=== PATIENT | male | born 1960 | race Hispanic/Latino ===

== ENCOUNTER 2018-04-04 10:41 | Observation (INO) | payer OTHER ==
--- OUTSIDE RECORDS SUMMARY | 2018-04-04 10:43 | XMS REPORT ---
:1960 Author Organization [employer] Care Team Providers Name Role Phone Augustin, Na Provider Role Unavailable Allergies, Adverse Reactions, Alerts Substance Reaction Event Type PCN Info Not Available Drug Allergy Amoxicillin Info Not Available Drug Allergy Problems Problem Type Condition Code Onset Dates Condition Status Problem Diabetic nephropathy E11.21 Active Problem Benign essential HTN I10 Active Problem Obese E66.9 Active Problem Other obesity due to excess E66.09 Active calories Problem Pain in right ankle and joints of M25.571 Active right foot Problem Other chronic pain G89.29 Active Problem Controlled type 2 diabetes mellitus E11.9 Active without complication, without long-term current use of insulin Problem Diabetes E11.9 Active Problem Body mass index (BMI) of 31.0-31.9 Z68.31 Active in adult Problem 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 Assessment Pain in right ankle and joints of M25.571 Active right foot Assessment Other chronic pain G89.29 Active Assessment Body mass index (BMI) of 31.0-31.9 Z68.31 Active in adult Assessment Other obesity due to excess E66.09 Active calories Assessment Benign essential HTN I10 Active Assessment Controlled type 2 diabetes mellitus E11.9 Active without complication, without long-term current use of insulin Assessment 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 Assessment Mixed hyperlipidemia E78.2 Active Problem Mixed hyperlipidemia E78.2 Active Medications Medication Code Code Instructions Start End Status Dosage System Date Date Victoza [facility] 95651318148 18 MG/3ML Jun 19, Active 1.8 mg Subcutaneous 2019 once a day Lovastatin [facility] 15135144406 40 MG Orally Active 1 tablet Once a day with a meal Duexis [facility] 88679269719 800-26.6 MG Active 1 tablet Orally Three times a day Lisinopril [facility] 06443730996 20 MG Orally Active 1 tablet Once a day Metformin HCl [facility] 58893637257 1000 MG Orally Active 1 tablet Twice a day with meals Gabapentin NDC 56595403905 300 MG Orally Active 1 capsule Once a day before bedtime Glimepiride [facility] 32916710595 4 MG Orally Active 1 tablet Once a day with breakfast or the first main meal of the day Aspirin Adult [facility] 35661215347 81 MG Orally Active 1 tablet Low Dose Once a day Results No Known Results Summary Purpose eClinicalWorks Submission
--- NOTE | 2018-04-04 11:09 | RAD REPORT ---
EXAM DESCRIPTION: RAD - Chest Single View - 04/04/2018 10:59 am CLINICAL HISTORY: Chest pain, trauma COMPARISON: None. TECHNIQUE: AP portable chest image was obtained 1049 hours . FINDINGS: No pulmonary contusion or acute lung parenchymal process. Heart size is normal. Mediastinu m is widened probably due to shallow inspiration, supine positioning and portable technique. Trachea is midline. No measurable pleural effusion and no pneumothorax. No acute bony abnormality seen. No ac chilkat aortic findings suspected. IMPRESSION: Limited supine portable exam with no acute cardiopulmonary finding.
[2018-04-04 11:10] LABS: Absolute Monocytes 0.3 K/uL (0.1-1.3); Absolute Neutrophil 5.8 K/uL (1.8-8.0); Basophils % 0.4 % (0-1.3); Eosinophils % 1.4 % (0-4.4); Hematocrit 40.2 % (39.6-49.0); Lymphocytes % 13.8 % (15.3-44.8); MCH 30.7 pg (27.0-35.0); MCV 85.6 fL (80-100); MPV 8.4 fL (7.6-11.3); Monocytes % 4.6 % (3.3-12.3)
[2018-04-04 11:23] LABS: BUN Blood Urea Nitrogen 13 mg/dL (7-18); Bicarbonate 23 mmol/L (21-32); Glucose Level 104 mg/dL (74-106); Potassium 3.9 mmol/L (3.5-5.1); Sodium Level 142 mmol/L (136-145)
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
[2018-04-04] MEDS ORDERED: HYDROCODONE/APAP 10/325 TAB ONE (12:01)
[2018-04-04 12:12] LABS: Urine Bacteria NONE SEEN /HPF (NONE SEEN); Urine RBC <5 /HPF (NONE SEEN)
[2018-04-04 12:13] LABS: Urine Culture Reflex Order NOT NEEDED
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
[2018-04-04] MEDS ORDERED: ONDANSETRON 4 MG/2 ML VIAL IV PRN (12:28)
[2018-04-04] MEDS ORDERED: MORPHINE 4 MG/ML SYR IV PRN (12:28)
[2018-04-04 13:19] LABS: Urine Blood TRACE (NEG); Urine Glucose NEGATIVE (NEG); Urine Protein 1+ (NEG); Urine pH 5.5 (5.0-7.0)
[2018-04-04 14:25] VITALS: O2SAT 96
[2018-04-04] MEDS: D5 0.45 NS 1,000 ML IV SCH ×2 (14:40→20:44)
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
[2018-04-04 14:56] VITALS: BMI 29.7
[2018-04-04] MEDS ORDERED: INFLUENZA VACCINE (for 3y+) 0.5 ML DOSE IMVAC ONE (16:00)
--- NOTE | 2018-04-04 16:05 | P.CNS ---
Date of Consult: 04/04/18 Reason for Consult: Medical management Requesting Physician: Avtar Castellon Primary Care Provider: Dr. Augustin; Cardiology-Dr. Blue Chief Complaint: Abdominal pain History of Present Illness: 58-year-old male presented to the emergency room with abdominal pain. Patient reported abdominal pain. While he was working a fork lift today he injured himself and had abdominal pain. He was in the process of loading material onto a trailer. Apparently the trailer went forward upon loading the trailer. This lifted the fork lift up on which he was on. The forklift then came down aggressively. He was wearing a seatbelt at that time. He reported some soreness to the body with abdominal pain. He did not fall out of the forklift. He denied any significant nausea, rectal bleeding, chest pain or shortness of breath. He was brought in to the emergency room for evaluation. Patient had CT scan. It showed no hemorrhage, edema or acute intracranial finding. Cervical spine appeared normal. No pneumothorax or pulmonary contusion noted. No rib fractures noted. No acute trauma to the abdominal viscera. No free air or free fluid noted. Thoracic and lumbar spine showed no fracture. Patient has prominent sigmoid diverticulosis. Some mild stranding was noted to the sigmoid region. Possible mass or lymph node noted to the left sub mandibular gland. Patient was seen and evaluated by surgery. Patient was admitted under surgery. I was asked to console for his medical management as the patient has underlying diabetes, hypertension and hyperlipidemia. Patient takes multiple medications. On lab blood sugar was decreased. Patient currently on D5 IV fluids. When I saw the patient he appeared stable. No complaints of nausea, vomiting, chest pain or shortness of breath. He denied any fever, rectal bleeding. Pain to the abdomen improved. He last ate early this morning. He also took his medication. Allergies Penicillins Allergy (Mild, Verified 04/04/18 14:50) Itching Home medications list reviewed: Yes - Past Medical/Surgical History Diabetic: Yes -: Diabetes mellitus type 2, [id number] -: Hypertension -: Hyperlipidemia Past Surgical History: Patient denies surgical history Psychosocial/ Personal History: Patient is . He has 4 children - Family History Father Family History: Reviewed- Non-Contributory - Social History Smoking Status: Never smoker Alcohol use: No CD- Drugs: No Caffeine use: Yes Place of Residence: Home Review of Systems General: As per HPI Eyes: Unremarkable ENT: Unremarkable Respiratory: Unremarkable Cardiovascular: Unremarkable Gastrointestinal: Abdominal Pain, As per HPI Genitourinary: Unremarkable Musculoskeletal: Unremarkable Integumentary: Unremarkable Neurological: Unremarkable Lymphatics: Unremarkable Physical Examination Temp Pulse Resp BP Pulse Ox 98 F 62 16 107/67 04/04/18 10:46 04/04/18 14:00 04/04/18 14:00 04/04/18 14:00 General: Alert, In no apparent distress, Oriented x3, Cooperative HEENT: Atraumatic, Normocephalic, PERRLA, Mucous membr. moist/pink Neck: Supple, No Thyromegaly Respiratory: Clear to auscultation bilaterally, Normal air movement Cardiovascular: Normal pulses, Regular rate/rhythm Gastrointestinal: Normal bowel sounds, Soft and benign, Non-distended, No masses , No rebound, No guarding, Other (Umbilical hernia noted), Tenderness (Minimal pain to the pelvic region) Musculoskeletal: No erythema, No tenderness, No warmth Integumentary: No tenderness/swelling, No erythema, No warmth, No cyanosis Neurological: Normal speech, Normal strength at 5/5 x4 extr, Normal tone, Normal affect Laboratory Data (last 24 hrs) 04/04/18 10:55: WBC 7.3, Hgb 14.4, Hct 40.2, Plt Count 246 04/04/18 10:55: Sodium 142, Potassium 3.9, BUN 13, Creatinine 0.70, Glucose 104 Conclusions/Impression: Impression: Abdominal pain after forklift accident likely mild trauma with evidence of diverticulosis with mild stranding to the sigmoid region Hypoglycemia with history of diabetes type 2 non-insulin dependent Hypertension Hyperlipidemia CT evidence of mass or lymph node to the left submandibular gland Plan: Abdominal pain after forklift accident likely mild trauma with evidence of diverticulosis with mild stranding to the sigmoid region: Abdominal pain improved. Will continue with serial abdominal exams. Patient improved. Will discuss with surgery to see if we can start clear liquids then advance as tolerated. Will continue with IV fluids. Patient on IV antibiotic therapy. Will monitor closely. Hypoglycemia with history of diabetes type 2 non-insulin dependent: Will continue with D5 IV fluids. Will change IV if blood sugar greater than 200. Hypertension: Will review and restart home medication. Hyperlipidemia: Will review and restart home medication. CT evidence of mass or lymph node to the left submandibular gland: This can be further assessed and evaluated as an outpatient with ENT. Patient will likely need dedicated ultrasound. Time Spent Managing Pts care (In Minutes): 55
[2018-04-04] MEDS ORDERED: GLUCAGON 1 MG/VIAL IM PRN (16:10)
[2018-04-04] MEDS ORDERED: D50W 25 GM/50 ML SYRINGE IV PRN (16:10)
[2018-04-04] MEDS ORDERED: TRAMADOL HCL 50 MG TAB PO PRN (16:11)
[2018-04-04] MEDS ORDERED: HYDROCODONE/APAP 7.5/325 MG TAB PO PRN (16:11)
[2018-04-04] MEDS: INSULIN -REGULAR HUMAN 50 UNIT/0.5 ML ML SQ SCH ×2 (16:30→20:45)
[2018-04-04 17:00] LABS: Urine Appearance CLEAR; Urine Bilirubin NEGATIVE (NEG); Urine Blood NEGATIVE (NEG); Urine Color YELLOW; Urine Glucose NEGATIVE (NEG); Urine Protein NEGATIVE (NEG); Urine Specific Gravity >=1.030 (1.005-1.030); Urine Urobilinogen 0.2 mg/dL (0.2-1.0); Urine pH 5.5 (5.0-7.0)
[2018-04-04 17:01] LABS: Urine Microscopic Reflex NO UMIC
[2018-04-04] MEDS ORDERED: CEFOXITIN 1 GM in NA CHLORIDE 0.9% 100 ML IVPB SCH (18:00)
[2018-04-04] MEDS ORDERED: PNEUMOCOCCAL VACCINE 0.5 ML IMVAC ONE (18:00)
[2018-04-04] MEDS ORDERED: CEFOXITIN/SWI 1gm 1 GM/10 ML SYR IVP SCH (18:00)
[2018-04-04] MEDS: CEFOXITIN/SWI 1gm 1 GM/10 ML SYR IVP SCH ×2 (19:07→23:46)
[2018-04-05] MEDS: D5 0.45 NS 1,000 ML IV SCH ×2 (05:27→13:00)
[2018-04-05] MEDS: CEFOXITIN/SWI 1gm 1 GM/10 ML SYR IVP SCH ×3 (05:27→17:40)
[2018-04-05 05:37] LABS: Absolute Lymphocytes (CBC) 1.1 K/uL (0.7-4.9); Absolute Monocytes 0.4 K/uL (0.1-1.3); Absolute Neutrophil 5.4 K/uL (1.8-8.0); Basophils % 0.3 % (0-1.3); Eosinophils % 2.7 % (0-4.4); Hematocrit 42.3 % (39.6-49.0); Lymphocytes % 15.1 % (15.3-44.8); MCH 30.4 pg (27.0-35.0); MCV 87.2 fL (80-100); MPV 8.6 fL (7.6-11.3); Monocytes % 5.8 % (3.3-12.3); RBC Red Blood Cell Count 4.86 M/uL (4.33-5.43)
[2018-04-05 06:06] LABS: ALT/SGPT 23 U/L (12-78); AST/SGOT 14 U/L (15-37); Albumin 3.9 g/dL (3.4-5.0); Alkaline Phosphatase 91 U/L (45-117); BUN Blood Urea Nitrogen 8 mg/dL (7-18); Bicarbonate 28 mmol/L (21-32); Bilirubin Direct 0.1 mg/dL (0-0.2); Bilirubin Total 0.5 mg/dL (0.2-1.0); Glucose Level 121 mg/dL (74-106); Lipase 1310 U/L (73-393); Potassium 3.8 mmol/L (3.5-5.1); Protein, Total 7.5 g/dL (6.4-8.2); Sodium Level 141 mmol/L (136-145)
[2018-04-05] MEDS: INSULIN -REGULAR HUMAN 50 UNIT/0.5 ML ML SQ SCH ×3 (07:30→16:30)
--- NOTE | 2018-04-05 09:01 | P.PN ---
Date of Service: 04/05/18 S: Patient feels well today, still has some soreness across his abdomen. Is able a ambulate. Tolerated a full liquid diet. O: Abdomen is soft, no guarding or rebound tender. A: Surgically stable status post a forklift accident P: The patient is able tolerate a diet at lunch, will discharge him home. He will see me on Tuesday in my office. Should any questions problems or concerns, he is more than welcome to contact me or go directly to the emergency room. He understands that. He is happy with this plan. I have discussed Advil/Motrin for his pain control. He is also advise any use of milk of magnesium. He is to ambulated at home.
--- NOTE | 2018-04-05 09:51 | P.PN ---
Subjective Date of Service: 04/05/18 Primary Care Provider: Dr. Augustin; Cardiology-Dr. Blue Chief Complaint: Abdominal pain Subjective: Other (Patient improved. No significant nausea vomiting noted. Pain to the lower quadrant improved but sore.) Physical Examination - Vital Signs Temperature: 98.3 F Blood Pressure: 112/67 Pulse: 64 Respirations: 20 Pulse Ox (%): 96 - Physical Exam General: Alert, In no apparent distress, Oriented x3, Cooperative HEENT: Atraumatic Neck: Supple Respiratory: Clear to auscultation bilaterally, Normal air movement Cardiovascular: Normal pulses, Regular rate/rhythm Gastrointestinal: Normal bowel sounds, Soft and benign, Non-distended, No masses , No rebound, No guarding, Tenderness (Minimal pain to the lower quadrant) Musculoskeletal: No erythema, No tenderness, No warmth Integumentary: No tenderness/swelling, No erythema, No warmth, No cyanosis Neurological: Normal speech, Normal strength at 5/5 x4 extr, Normal tone, Normal affect - Studies Laboratory Data (last 24 hrs) 04/04/18 10:55: WBC 7.3, Hgb 14.4, Hct 40.2, Plt Count 246 04/04/18 10:55: Sodium 142, Potassium 3.9, BUN 13, Creatinine 0.70, Glucose 104 Medications List Reviewed: Yes Assessment & Plan Discharge Plan: Home Plan to discharge in: 24 Hours Physician Review Additional Text: Impression: Abdominal pain after forklift accident likely mild trauma with evidence of diverticulosis with mild stranding to the sigmoid region Hypoglycemia with history of diabetes type 2 non-insulin dependent, A1c 6.8 Hypertension Hyperlipidemia Diabetic neuropathy CT evidence of mass or lymph node to the left submandibular gland Plan: Abdominal pain after forklift accident likely mild trauma with evidence of diverticulosis with mild stranding to the sigmoid region: Abdominal pain improved. No significant nausea or vomiting noted. Surgery has evaluated patient. Diet will be advanced. Will have physical therapy assess ambulation. If patient tolerates diet and moves appropriately the patient can be discharged home later today. Will reassess this afternoon. Will discuss with surgery. Hypoglycemia with history of diabetes type 2 non-insulin dependent, A1c 6.8 : Will continue with IV fluids. Will monitor and adjust appropriately. A1c well controlled. Hypertension: Will restart home medication. Will monitor and address appropriately. Hyperlipidemia: Will restart home medication. Diabetic neuropathy: Will continue with his medication CT evidence of mass or lymph node to the left submandibular gland: This can be further assessed and evaluated as an outpatient with ENT. Patient will likely need dedicated ultrasound. Time Spent Managing Pts Care (In Minutes): 55
[2018-04-05] MEDS: ACETAMINOPHEN 500 MG TAB PO PRN ×2 (10:39→17:23)
[2018-04-05] MEDS ORDERED: GABAPENTIN 300 MG CAP PO PRN (13:23)
--- NOTE | 2018-04-05 13:25 | P.DS ---
Admission Date: 04/04/18 Discharge Date: 04/05/18 Primary Care Provider: Dr. Augustin; Cardiology-Dr. Blue Disposition: ROUTINE DISCHARGE Discharge Condition: GOOD Reason for Admission: Abdominal pain Consultations: Surgery-Dr. Allison Procedures: CT scan: COMPARISON: None. TECHNIQUE: Axial [address] head images were obtained. Axial [address] cervical spine images were obtained with sagittal and coronal reconstruction images reviewed. During dynamic enhancement of 100mL non-ionic contrast, axial 5 mm images of the chest, abdomen and pelvis were obtained. All CT scans are performed using dose optimization technique as appropriate and may include automated exposure control or mA/KV adjustment according to patient size. FINDINGS: No intracranial hemorrhage, mass or edema. No midline shift or abnormal fluid collection. Mastoid air cells and paranasal sinuses are clear. No skull fracture. CT cervical spine imaging shows normal height. Normal alignment of the vertebrae. No disc space narrowing. No fracture seen. Degenerative calcification of the C3-4 disc space is present. C6-7 disc space narrowing with endplate spurring seen. There is bony foraminal encroachment at this level. Central canal detail is inherently limited. Concerns for traumatic disc herniation or traumatic cord injury can be further addressed with MR imaging. CT chest shows no pneumothorax, pulmonary contusion or pleural fluid collection. No mediastinal hematoma and the aorta and pulmonary arteries are unremarkable. No chest will mass or abnormal axillary finding. No displaced rib fracture or other significant bony finding. CT abdomen and pelvis show no injury to solid abdominal viscera. Gallbladder and biliary tree are unremarkable. Renal function is symmetric and without delay. No free air, free fluid or pneumatosis. Patient has significant sigmoid diverticulosis. Sigmoid is tortuous and redundant. In the left lower quadrant there is a minimal amount of stranding in the fatty tissues adjacent to the sigmoid. No mass lesions seen. Urinary bladder is intact. Patient has a 2.5 cm fat only umbilical hernia. Large bilateral fat filled inguinal hernias are present. No acute vascular finding. Prominent degenerative changes are seen in the thoracic and lumbar spine. No compression fracture. No skeletal muscle hematoma. No significant hematoma or contusion changes of the soft tissues. Along the inferior margin of the left submandibular gland there is a 3 centimeter mass. This examination is limited in terms of assessment. This could be an enlarged or lobulated submandibular gland. An adjacent abnormal lymph node would be possible. This does not have the appearance of hematoma. IMPRESSION: No hemorrhage, edema or acute intracranial finding identifiable. Cervical spine degenerative change present without fracture. Central canal detail is inherently limited. No pneumothorax or pulmonary contusion. No displaced rib fracture or other significant CT chest finding. No acute traumatic injury to the solid abdominal viscera. No free air, free fluid or emergent finding. Thoracic and lumbar spine degenerative changes are present but no compression fracture or acute finding seen. Patient has prominent sigmoid diverticulosis and a small amount of stranding adjacent to the sigmoid colon. This has the appearance of mild acute diverticulitis. Correlation is needed with any preexisting left lower quadrant symptoms. Possible mass or lymph node associated with the left submandibular gland. This is not believed to be related to the acute event. Followup nonemergent sonography of the left submandibular gland region would be suggested. Medical Problem List: Abdominal pain after forklift accident likely mild trauma with evidence mild stranding to the sigmoid region with history of diverticulosis Hypoglycemia with history of diabetes type 2 non-insulin dependent, A1c 6.8 Hypertension Hyperlipidemia Diabetic neuropathy CT evidence of mass or lymph node to the left submandibular gland Brief History of Present Illness: 58-year-old male presented to the emergency room with abdominal pain. Patient reported abdominal pain. While he was working a fork lift today he injured himself and had abdominal pain. He was in the process of loading material onto a trailer. Apparently the trailer went forward upon loading the trailer. This lifted the fork lift up on which he was on. The forklift then came down aggressively. He was wearing a seatbelt at that time. He reported some soreness to the body with abdominal pain. He did not fall out of the forklift. He denied any significant nausea, rectal bleeding, chest pain or shortness of breath. He was brought in to the emergency room for evaluation. Patient had CT scan. It showed no hemorrhage, edema or acute intracranial finding. Cervical spine appeared normal. No pneumothorax or pulmonary contusion noted. No rib fractures noted. No acute trauma to the abdominal viscera. No free air or free fluid noted. Thoracic and lumbar spine showed no fracture. Patient has prominent sigmoid diverticulosis. Some mild stranding was noted to the sigmoid region. Possible mass or lymph node noted to the left sub mandibular gland. Patient was seen and evaluated by surgery. Patient was admitted under surgery. I was asked to console for his medical management as the patient has underlying diabetes, hypertension and hyperlipidemia. Patient takes multiple medications. On lab blood sugar was decreased. Patient currently on D5 IV fluids. When I saw the patient he appeared stable. No complaints of nausea, vomiting, chest pain or shortness of breath. He denied any fever, rectal bleeding. Pain to the abdomen improved. He last ate early this morning. He also took his medication. Hospital Course: Patient presented with abdominal pain after forklift accident. Patient had mild trauma with CT showing mild stranding to the sigmoid region. No hematoma or intra-abdominal acute abnormality identified. Patient with history of diverticulosis. Patient was monitored overnight. Patient seen by surgery. No surgical intervention was required. At discharge he was able to tolerate diet and move appropriately. Surgery cleared the patient to go home. At discharge he will continue at home. Patient will follow up with surgery within 1 week. Patient will need clearance to go back to work after seen by surgery. Patient may take Tylenol [id number] or ibuprofen as needed for pain. Patient has diabetes mellitus type 2, non-insulin dependent. A1c 6.8. Patient had mild hypoglycemia upon admission. This resolved. Patient tolerating his diet. At discharge he will continue with glimepiride 4 mg 1 pill twice daily, metformin 1000 mg 1 pill twice daily, and Victoza. Recommendation is to maintain blood sugars less 140 fasting and less than 200 after meals. Further adjustment can be done by his PCP. Education on hypoglycemia will be provided. Patient has diabetic neuropathy. Patient will continue with gabapentin 300 mg at bedtime. Patient has hypertension. Patient will continue with Norvasc 10 mg daily and lisinopril 20 mg daily. Recommendation is to maintain blood pressures less 150/ 80. Further adjustment can be done by his PCP. Patient has hyperlipidemia. Patient will continue with his medication lovastatin [address] also showed a mass or lymph node to the left sub mandibular region. Recommendation is for the patient to follow up with ENT as an outpatient to further evaluate. Patient will likely require dedicated ultrasound to assess. Vital Signs/Physical Exam: Temp Pulse Resp BP Pulse Ox 98.3 F 63 20 155/77 H 96 04/05/18 12:00 04/05/18 12:00 04/05/18 12:00 04/05/18 12:00 04/05/18 12:00 General: Alert, In no apparent distress, Oriented x3, Cooperative HEENT: Atraumatic, Mucous membr. moist/pink Neck: Supple, No Thyromegaly Respiratory: Clear to auscultation bilaterally, Normal air movement Cardiovascular: Normal pulses, Regular rate/rhythm Gastrointestinal: Normal bowel sounds, Soft and benign, Non-distended, No tenderness, No masses, No rebound, No guarding Musculoskeletal: No erythema, No tenderness, No warmth Integumentary: No tenderness/swelling, No erythema, No warmth, No cyanosis Neurological: Normal speech, Normal strength at 5/5 x4 extr, Normal tone, Normal affect Laboratory Data at Discharge: WBC 7.1 K/uL (4.3-10.9) 04/05/18 05:14 Hgb 14.8 g/dL (13.6-17.9) 04/05/18 05:14 Hct 42.3 % (39.6-49.0) 04/05/18 05:14 Plt Count 268 K/uL (152-406) 04/05/18 05:14 Sodium 141 mmol/L (136-145) 04/05/18 05:14 Potassium 3.8 mmol/L (3.5-5.1) 04/05/18 05:14 BUN 8 mg/dL (7-18) 04/05/18 05:14 Creatinine 0.80 mg/dL (0.55-1.3) 04/05/18 05:14 Glucose 121 mg/dL (74-106) H 04/05/18 05:14 Total Bilirubin 0.5 mg/dL (0.2-1.0) 04/05/18 05:14 AST 14 U/L (15-37) L 04/05/18 05:14 ALT 23 U/L (12-78) 04/05/18 05:14 Alkaline Phosphatase 91 U/L (45-117) 04/05/18 05:14 Lipase 1310 U/L (73-393) H 04/05/18 05:14 Home Medications: Amlodipine [Norvasc*] 10 mg PO DAILY 04/04/18 Gabapentin 300 mg PO BEDTIME PRN 04/04/18 Glimepiride 4 mg PO BID 04/04/18 Liraglutide [Victoza 2-Arash] 1.8 mg SQ DAILY 04/04/18 Lisinopril 20 mg PO DAILY 04/04/18 Lovastatin 40 mg PO DAILY 04/04/18 Metformin HCl 1,000 mg PO BID 04/04/18 Patient Discharge Instructions: 1. Patient will need to follow up with surgery within 1 week to follow up this hospitalization. 2. Patient presented with abdominal pain after forklift accident. Patient had mild trauma with CT showing mild stranding to the sigmoid region. Patient with history of diverticulosis. Patient was monitored overnight. Patient seen by surgery. No surgical intervention was required. At discharge he was able to tolerate diet and move appropriately. Surgery cleared the patient to go home. At discharge he will continue at home. Patient will follow up with surgery within 1 week. Patient will need clearance to go back to work after seen by surgery. Patient may take [id number] Tylenol or ibuprofen as needed for pain. 3. Patient has diabetes mellitus type 2, non-insulin dependent. A1c 6.8. Patient had mild hypoglycemia upon admission. This resolved. Patient tolerating his diet. At discharge he will continue with glimepiride 4 mg 1 pill twice daily, metformin 1000 mg 1 pill twice daily, and Victoza. Recommendation is to maintain blood sugars less 140 fasting and less than 200 after meals. Further adjustment can be done by his PCP. Hypoglycemia education will be provided. 4. Patient has diabetic neuropathy. Patient will continue with gabapentin 300 mg at bedtime. 5. Patient has hypertension. Patient will continue with Norvasc 10 mg daily and lisinopril 20 mg daily. Recommendation is to maintain blood pressures less 150/80. Further adjustment can be done by his PCP. 6. Patient has hyperlipidemia. Patient will continue with his medication lovastatin [address] also showed a mass or lymph node to the left sub mandibular region. Recommendation is for the patient to follow up with ENT as an outpatient to further evaluate. Patient will likely require dedicated ultrasound to assess. Diet: ADA Activity: No lifting more than 10 lbs Followup: Avtar Castellon MD [ACTIVE - CAN ADMIT] - 04/10/18 (Call for appointment.) Time spent managing pt's care (in minutes): 55
[2018-04-05] MEDS ORDERED: METFORMIN HCL 500 MG TAB PO SCH (17:00)
[2018-04-05 17:01] VITALS: BP 131/68; TEMP 97.8
[2018-04-05] MEDS ORDERED: ATORVASTATIN 20 MG TAB PO SCH (21:00)
[2018-04-06] MEDS ORDERED: LISINOPRIL 20 MG TAB PO SCH (09:00)
[2018-04-06] MEDS ORDERED: AMLODIPINE 10 MG TAB PO SCH (09:00)
== END 2018-04-05 17:45 | disposition home or self-care (01) ==
LOC: ER 10:41 → ERHOLD 12:27 → 2ND 14:00
PROVIDERS: ADMIT Surgery; ATTEND Surgery
DX: R10.9 Unspecified abdominal pain (principal); T14.90XA Injury, unspecified, initial encounter; K57.90 Diverticulosis of intestine, part unspecified, without perforation or abscess without bleeding; I10 Essential (primary) hypertension; E78.5 Hyperlipidemia, unspecified; E11.649 Type 2 diabetes mellitus with hypoglycemia without coma; E11.40 Type 2 diabetes mellitus with diabetic neuropathy, unspecified; R93.89 Abnormal findings on diagnostic imaging of other specified body structures; V83.5XXA Driver of special industrial vehicle injured in nontraffic accident, initial encounter; Y92.69 Other specified industrial and construction area as the place of occurrence of the external cause; Z23 Encounter for immunization
CPT/HCPCS: 36415; 70450; 71045; 71260; 72125; 74177; 80048; 80076; 81003; 81015; 82962; 83036; 83690; 85025; 86850; 86900; 86901; 90670; 97163; 99285; G0008; G0009; G0378; Q2035; Q9967

== ENCOUNTER 2019-02-05 13:19 | Emergency (ER) | payer OTHER ==
--- OUTSIDE RECORDS SUMMARY | 2019-02-05 13:21 | XMS REPORT | Summary of Care ---
:1960 Author Organization [facility] - Health Address [address] [place] [address] Care Team Providers Name Role Phone Paulina Augustin Kimberly Primary Care Provider Encounter Details Date Type Department Care Team Description 01/05/2019 Orders Only [facility] Doctor Unassigned, [address] [facility] [place] [address] [address] [place] [address] Allergies Active Allergy Reactions Severity Noted Date Comments Penicillins Hives, Itching, Rash 07/24/2015 documented as of this encounter (statuses as of 01/08/2019) Medications Medication Sig Dispensed Refills Start Date End Date Status metFORMIN (GLUCOPHAGE) Take 1,000 mg by 1 05/22/2015 Active 1,000 mg tablet mouth 2 (two) times daily with meals. VICTOZA 3-JOSE 0.6 3 07/16/2015 Active mg/0.1 mL (18 mg/3 mL) injection lovastatin 40 mg Take 40 mg by 0 Active tablet mouth at bedtime. glimepiride 4 mg Take 4 mg by 0 Active tablet mouth 2 (two) times daily. lisinopril 20 mg Take 1 tablet by 180 tablet 3 01/05/2019 Active tablet mouth 2 (two) times daily. amLODIPine 10 mg Take 1 tablet by 90 tablet 3 01/05/2019 Active tablet mouth daily. documented as of this encounter (statuses as of 01/08/2019) Active Problems Problem Noted Date Right ankle pain 07/24/2015 Hypertension Hyperlipidemia Diabetes mellitus documented as of this encounter (statuses as of 01/08/2019) Social History Tobacco Use Types Packs/Day Years Used Date Never Smoker Smokeless Tobacco: Never Used Alcohol Use Drinks/Week oz/Week Comments No 0 Standard drinks or equivalent 0.0 Sex Assigned at Date Recorded Not on file Job Start Date Occupation Industry Not on file Not on file Not on file Travel History Travel Start Travel End No recent travel history available. documented as of this encounter Last Filed Vital Signs Not on filedocumented in this encounter Plan of Treatment Date Type Specialty Care Team Description 01/17/2019 Office Visit Cardiology Amelia Casey MD [address] [place] [address] [address] [place] [address] [phone] Health Maintenance Due Date Last Done Comments HEPATITIS C (HCV) SCREEN 1960 HgA1C 1961 PNEUMOCOCCAL 0-64 YEARS COMBINED SERIES (1 of 1 - 01/13/1964 PPSV23) CREATININE (SERUM) 01/13/1968 EYE EXAM 01/13/1968 LDL-C 01/13/1968 URINE MICROALBUMIN 01/13/1968 FOOT EXAM 01/13/1976 DTaP,Tdap,and Td Vaccines (1 - Tdap) 1977 COLONOSCOPY 01/13/2008 Zoster Recombinant Vaccine (SHINGRIX) (1 of 2) 01/13/2008 INFLUENZA VACCINE 01/28/2019 documented as of this encounter Procedures Procedure Name Priority Date/Time Associated Diagnosis Comments EXTERNAL PROVIDER - ADC Routine 01/05/2019 12:01 AM CARDIOLOGY CDT documented in this encounter Results Not on filedocumented in this encounter Insurance Payer Benefit Plan / Subscriber ID Effective Dates Phone Address Type Group [employer] GENERIC [facility]IC [id number] 2018-Present [employer] C[employer] CIGNA II [id number] 2005-Present HMO/PPO/POS [employer] [id number] 2015-Present [facility] documented as of this encounter
--- OUTSIDE RECORDS SUMMARY | 2019-02-05 13:21 | XMS REPORT | Summary of Care ---
:1960 Author Organization [facility] - [facility] Address [address] [place] [address] Care Team Providers Name Role Phone Brianna Augustin Kimberly Primary Care Provider Reason for Visit Reason Comments Follow-up annual follow-up (Routine) Status Reason Specialty Diagnoses / Referred By Referred To Procedures Contact Contact New Request IM-CARDIOVASCULAR Diagnoses 12 month FU Yasmani Echeverria Qiangjun, DISEASE / Procedures CONSULT/REFERRAL PHYSICAL THERAPY FOLLOW-UP VISIT MD DARSHAN Quiroz Cardiology [address] [place] [phone] [place], [place] Phone: [phone] Phone: Encounter Details Date Type Department Care Team Description 01/17/2019 Office Visit [facility] Amelia Casey MD Essential hypertension (Primary Dx); Cardiology- [address] Obesity (BMI 30-39.9) [facility] [place] [address] [place] [phone] Allergies Active Allergy Reactions Severity Noted Date Comments Penicillins Hives, Itching, Rash 07/24/2015 documented as of this encounter (statuses as of 01/17/2019) Medications Medication Sig Dispensed Refills Start Date End Date Status metFORMIN Take 1,000 mg 1 05/22/2015 Active (GLUCOPHAGE) 1,000 by mouth 2 mg tablet (two) times daily with meals. VICTOZA 3-JOSE 0.6 3 07/16/2015 Active mg/0.1 mL (18 mg/3 mL) injection lovastatin 40 mg Take 40 mg by 0 Active tablet mouth at bedtime. glimepiride 4 mg Take 4 mg by 0 Active tablet mouth 2 (two) times daily. amLODIPine 10 mg Take 1 tablet 90 tablet 3 01/17/2019 Active tabletIndications: by mouth Essential daily. hypertension lisinopril 20 mg Take 1 tablet 180 tablet 3 01/17/2019 Active tabletIndications: by mouth 2 Essential (two) times hypertension daily. lisinopril 20 mg Take 1 tablet 180 tablet 3 01/05/2019 01/17/2019 Discontinued tablet by mouth 2 (two) times daily. amLODIPine 10 mg Take 1 tablet 90 tablet 3 01/05/2019 01/17/2019 Discontinued tablet by mouth daily. documented as of this encounter (statuses as of 01/17/2019) Active Problems Problem Noted Date Right ankle pain 07/24/2015 Hypertension Hyperlipidemia Diabetes mellitus documented as of this encounter (statuses as of 01/17/2019) Social History Tobacco Use Types Packs/Day Years [...] of this encounter Last Filed Vital Signs Vital Sign Reading Time Taken Comments Blood Pressure 124/70 01/17/2019 1:18 PM CDT Pulse 84 01/17/2019 1:18 PM CDT Temperature - - Respiratory Rate - - Oxygen Saturation 96% 01/17/2019 1:18 PM CDT Inhaled Oxygen Concentration - - Weight 83.5 kg (184 lb) 01/17/2019 1:18 PM CDT Height 162.6 cm (5' 4") 01/17/2019 1:18 PM CDT Body Mass Index 31.58 01/17/2019 1:18 PM CDT documented in this encounter Progress Notes Amelia Casey MD - 01/17/2019 1:00 PM CDT CARDIOLOGY CLINIC NOTE 01/17/2019 Reason for Referral/Presenting Complaint: HTN PCP: PATIENT DOES NOT HAVE A PCP History of Present Illness: Juliocesar Martinez is a 59 years old male with history of obesity, HTN, HLD, and DM. He was diagnosed HTN about 6 years ago. For the past 1-2 years it has been elevated around 160-170s. He denies chest pain, GEORGE, or SOB. Denies excessive salt intake. He snores. Weight has been stable. Previous visitwe increased lisinopril and added amlodipine. His BP has been well controlled. He is feeling well. Labs done in 08/2018 reviewed. No concerns. Review of Systems: General: (-) fever, (-) chills, (-) weight change, (-) dizziness, (-) fatigue Skin: (-) rash HEENT: (-) headache, (-) change in vision Neck: (-) difficulty swallowing Heme: negative Resp: (-) cough, (-) dyspnea on exertion Cardio: (-) chest pain, (-) palpitations, (-) syncope GI: (-) vomiting, (-) diarrhea : negative Endo: (+) diabetes, (-) thyroid disease Neuro: (-) numbness, (-) tingling, (-) weakness Back: (-) pain TIMOTEO: (-) muscle pain, (-) claudication Psych: (-) anxiety, (-) depression Past Medical History: Past Medical History: Diagnosis Date Diabetes mellitus Hyperlipidemia Hypertension Right ankle pain 07/24/2015 Current Medications: Current Outpatient Medications Medication Sig Dispense Refill amLODIPine 10 mg tablet Take 1 tablet by mouth daily. 90 tablet 3 lisinopril 20 mg tablet Take 1 tablet by mouth 2 (two) times daily. 180 tablet 3 lovastatin 40 mg tablet Take 40 mg by mouth at bedtime. metFORMIN (GLUCOPHAGE) 1,000 mg tablet Take 1,000 mg by mouth 2 (two) times daily with meals. 1 VICTOZA 3-JOSE 0.6 mg/0.1 mL (18 mg/3 mL) injection 3 glimepiride 4 mg tablet Take 4 mg by mouth 2 (two) times daily. No current facility-administered medications for this visit. Social History: Social History Socioeconomic History Marital status: Spouse name: Not on file Number of children: Not on file Years of education: Not on file Highest education level: Not on file Occupational History Not on file Social Needs Financial resource strain: Not on file Food insecurity: Worry: Not on file Inability: Not on file Transportation needs: Medical: Not on file Non-medical: Not on file Tobacco Use Smoking status: Never Smoker Smokeless tobacco: Never Used Substance and Sexual Activity Alcohol use: No Alcohol/week: 0.0 oz Drug use: No Sexual activity: Never Lifestyle Physical activity: Days per week: Not on file Minutes per session: Not on file Stress: Not on file Relationships Social connections: Talks on phone: Not on file Gets together: Not on file Attends shinto service: Not on file Active member of club or organization: Not on file Attends meetings of clubs or organizations: Not on file Relationship status: Not on file Intimate partner violence: Fear of current or ex partner: Not on file Emotionally abused: Not on file Physically abused: Not on file Forced sexual activity: Not on file Other Topics Concern Not on file Social History Narrative Not on file Family History Family History Problem Relation Age of Onset Diabetes Mother Physical Examination: BP 124/70 (BP Location: Right arm, Patient Position: Sitting, BP CUFF SIZE: Adult Medium) | Pulse 84 | Ht 5' 4" (1.626 m) | Wt 184 lb (83.5 kg) | SpO2 96% | BMI 31.58 kg/m Constitutional: alert and oriented x 3 (person, place and date/time); no apparent distress, obese ENT: normocephalic atraumatic, supple, no lymphadenopathy, no bruits, no JVD Lungs: clear to auscultation bilaterally Cardiovascular: S1, S2 normal, regular; no murmurs, rubs or gallops GI: soft; non-tender; non-distended; normoactive bowel sounds : not examined Musculoskeletal: Extremities: no clubbing, cyanosis, or edema Skin: no rashes Neuro: no focal deficits Cardiovascular testing: EKG: Normal sinus rhythm. Normal EKG. ECHO--2018 There is mild concentric left ventricular hypertrophy. Left ventricular systolic function is normal. Diastolic dysfunction. The right ventricle is borderline dilated. The right ventricular systolic function is normal. Right ventricular systolic pressure is normal. The left atrium is borderline dilated. GHADA--Normal Assessment/Plan: ICD-10-CM ICD-9-CM 1. Essential hypertension I10 401.9 2. Obesity (BMI 30-39.9) E66.9 278.00 HTN--His BP is well controlled now. Continue lisinopril and amlodipine. Obesity/snoring--We requested a sleep study to assess GEOVANNY but apparently he does not want it. Patient was counseled for lifestyle modifications including: diet, exercise and weight loss. RTC 12 months Amelia Casey MD, FACC, FACP, ЕКАТЕРИНА Machine Mover, Division of Cardiology [facility] documented in this encounter Plan of Treatment Date Type Specialty Care Team Description 01/22/2020 Office Visit Cardiology Amelia Casey MD [address] [facility] [address] [place] [address] Health Maintenance Due Date Last Done Comments HEPATITIS C (HCV) SCREEN 1960 HgA1C 1961 PNEUMOCOCCAL 0-64 YEARS COMBINED SERIES (1 of 1 - 01/13/1964 PPSV23) CREATININE (SERUM) 01/13/1968 EYE EXAM 01/13/1968 LDL-C 01/13/1968 URINE MICROALBUMIN 01/13/1968 FOOT EXAM 01/13/1976 DTaP,Tdap,and Td Vaccines (1 - Tdap) 1977 COLONOSCOPY 01/13/2008 Zoster Recombinant Vaccine (SHINGRIX) (1 of 2) 01/13/2008 INFLUENZA VACCINE (#1) 2019 documented as of this encounter Results Not on filedocumented in this encounter Visit Diagnoses Diagnosis Essential hypertension - Primary Unspecified essential hypertension Obesity (BMI 30-39.9) Obesity, unspecified documented in this encounter [place] (Home) [address] [place], [place] (Work) [address] documented as of this encounter
--- OUTSIDE RECORDS SUMMARY | 2019-02-05 13:21 | XMS REPORT | Summary of Care ---
:1960 Author Organization [facility] - [facility] Address [address] [place] [address] Care Team Providers Name Role Phone Brianna Augustin Kimberly Primary Care Provider Reason for Visit Reason Comments Follow-up annual follow-up (Routine) Status Reason Specialty Diagnoses / Referred By Referred To Procedures Contact Contact New Request IM-CARDIOVASCULAR Diagnoses 12 month FU Yasmani Echeverria Qiangjun, DISEASE / Procedures CONSULT/REFERRAL PHYSICAL THERAPY FOLLOW-UP VISIT MD DARSHAN Quiroz Cardiology [address] [place] [phone] [place], [place] Phone: [phone] Phone: Encounter Details Date Type Department Care Team Description 01/17/2019 Office Visit [facility] Amelia Casey MD Essential hypertension (Primary Dx); Cardiology- [address] Obesity (BMI 30-39.9) [facility] [place] [address] [place] [phone] Allergies Active Allergy Reactions Severity Noted Date [...] file Gets together: Not on file Attends nondenominational service: Not on file Active member of [...] months Amelia Casey MD, FACC, FACP, ЕКАТЕРИНА Slag Mixer, Division of Cardiology [facility] documented in this encounter Plan of Treatment Date Type Specialty Care Team Description 01/22/2020 Office Visit Cardiology Amelia Casey MD [address] [facility] [address] [place] [address] Health Maintenance Due Date Last [...] documented in this encounter [place] [place], [place] (Work) [address] documented as of this encounter
--- OUTSIDE RECORDS SUMMARY | 2019-02-05 13:21 | XMS REPORT ---
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 Assessment Mixed hyperlipidemia E78.2 Active Problem Mixed hyperlipidemia E78.2 Active Medications Medication Code Code Instructions Start End Status Dosage System Date Date Duexis [facility] 89088208001 800-26.6 MG Active 1 tablet Orally Three times a day Metformin HCl [facility] 33435303952 1000 MG Orally Active 1 tablet Twice a day with meals Amlodipine [facility] 66515160136 10 MG Orally Jul 11, Active 1 tablet Besylate Once a day 2018 Glimepiride [facility] 65256413759 4 MG Active TAKE 1 TABLET BY MOUTH TWICE A DAY Victoza [facility] 38580281102 18 MG/3ML Jan 07, Active 1.8 mg Subcutaneous 2018 once a day Aspirin Adult [facility] 47844965223 81 MG Orally Active 1 tablet Low Dose Once a day Gabapentin [facility] 18195273688 300 MG Orally Active 1 capsule Once a day before bedtime Lisinopril [facility] 64579529197 20 MG Orally Active 1 tablet Once a day Lovastatin [facility] 07188375533 40 MG Orally Active 1 tablet Once a day with a meal Results No Known Results Summary Purpose eClinicalWorks Submission
--- OUTSIDE RECORDS SUMMARY | 2019-02-05 13:21 | XMS REPORT ---
[...] End Status Dosage System Date Date Victoza [facility] 63108770900 18 MG/3ML Jun 19, Active 1.8 mg Subcutaneous 2019 once a day Lovastatin [facility] 35117361471 40 MG Orally Active 1 tablet Once a day with a meal Duexis [facility] 41583521357 800-26.6 MG Active 1 tablet Orally Three times a day Lisinopril [facility] 77400807747 20 MG Orally Active 1 tablet Once a day Metformin HCl [facility] 44994134288 1000 MG Orally Active 1 tablet Twice a day with meals Gabapentin NDC 75894634638 300 MG Orally Active 1 capsule Once a day before bedtime Glimepiride [facility] 07308421216 4 MG Orally Active 1 tablet Once a day with breakfast or the first main meal of the day Aspirin Adult [facility] 78789374489 81 MG Orally Active 1 tablet Low Dose Once a day Results No Known Results Summary Purpose eClinicalWorks Submission
--- OUTSIDE RECORDS SUMMARY | 2019-02-05 13:21 | XMS REPORT ---
:1960 Author Organization [facility] Address [address] [place] [address] [address] [place] [address] Care Team Providers Name Role Phone DR REBA BARNES Unavailable Unavailable Problems This patient has no known problems. Allergies, Adverse Reactions, Alerts This patient has no known allergies or adverse reactions. Medications This patient has no known medications. Encounters Start End Encounter Admission Attending Care Care Encounter Date/Time Date/Time Type Type Clinicians Facility Department ID 2018-07-04 2018-07-04 Outpatient C JAROD BARNES [facility] [id number] 05:36:00 12:29:00 REBA Results Test Description Test Time Test Comments Text Results Atomic Results Result Comments GLUCOMETER GLUCOSE- LAB USE ONLY 2018-07-04 13:21:00 Test Item Value Reference Range Comments GLUCOMETER (test code=GMG) 243 mg/dL 70-100 Meter ID: [id number]: [id number] DONNIE RINCON GLUCOMETER GLUCOSE- LAB USE [id number] 13:21:00 Test Item Value Reference Range Comments GLUCOMETER (test code=GMG) 275 mg/dL 70-100 Meter ID: [id number]: [id number] JULIANA HIRSCH GLUCOMETER GLUCOSE- LAB USE [id number] 06:40:00 Test Item Value Reference Range Comments GLUCOMETER (test code=GMG) 157 mg/dL 70-100 Meter ID: [id number]: [id number] YUE MATHIAS
--- OUTSIDE RECORDS SUMMARY | 2019-02-05 13:21 | XMS REPORT | Summary of Care ---
:1960 Author Organization [facility] Address [address] [place] [address] Care Team Providers Name Role Phone Paulina Augustin Kimberly Primary Care Provider Reason for Visit Reason Comments Refill Request amlodipine and lisinopril Encounter Details Date Type Department Care Team Description 01/01/2019 [facility]iology- Amelia Casey MD Refill Request [address] (amlodipine and [address] [place] [address], DRIVE lisinopril) [address] [place] [address] [place] [address] [phone] Allergies Active Allergy Reactions Severity Noted Date Comments Penicillins Hives, Itching, Rash 07/24/2015 documented as of this encounter (statuses as of 01/05/2019) Medications Medication Sig Dispensed Refills Start Date [...] Take 1 tablet 180 tablet 3 01/05/2019 Active tablet by mouth 2 (two) times daily. amLODIPine 10 mg Take 1 tablet 90 tablet 3 01/05/2019 Active tablet by mouth daily. amLODIPine 10 mg Take 1 tablet 90 tablet 3 01/11/2018 01/05/2019 Discontinued tablet by mouth daily. lisinopril 20 mg Take 1 tablet 180 tablet 3 01/11/2018 01/05/2019 Discontinued tablet by mouth 2 (two) times daily. documented as of this encounter (statuses as of 01/05/2019) Active Problems Problem Noted Date Right ankle pain 07/24/2015 Hypertension Hyperlipidemia Diabetes mellitus documented as of this encounter (statuses as of 01/05/2019) Social History Tobacco Use Types Packs/Day Years [...] 01/17/2019 Office Visit Cardiology Amelia Casey MD [address] [place] [address] [address] [place] [address] Health Maintenance Due Date Last [...] VACCINE 01/28/2019 documented as of this encounter Results Not on filedocumented in this encounter Insurance Payer Benefit Plan / Subscriber ID Effective Dates Phone Address Type Group [employer] GENERIC [employer] GENERIC [id number] 2018-Present [employer] CIGNA CIGNA II [id number] 2005-Present HMO/PPO/POS [employer] GENERIC [employer] GENERIC [id number] 2015-Present [employer] documented as of this encounter
--- OUTSIDE RECORDS SUMMARY | 2019-02-05 13:21 | XMS REPORT ---
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 39497578032 300 MG Orally Active 1 capsule Once a day before bedtime Results No Known Results Summary Purpose eClinicalWorks Submission
--- OUTSIDE RECORDS SUMMARY | 2019-02-05 13:22 | XMS REPORT | Summary of Care ---
:1960 Author Organization [facility] Address [address] [place] [address] Care Team Providers Name Role Phone Brianna Augustin Kimberly Primary Care Provider Reason for Visit Reason Comments Follow-up annual follow-up (Routine) Status Reason Specialty Diagnoses / Referred By Referred To Procedures Contact Contact New Request IM-CARDIOVASCULAR Diagnoses 12 month FU Yasmani Echeverria Qiangjun, DISEASE / Procedures CONSULT/REFERRAL PHYSICAL THERAPY FOLLOW-UP VISIT MD DARSHAN Quiroz Cardiology [address] [place] [phone] [place], [place] Phone: [phone] Phone: Encounter Details Date Type Department Care Team Description 01/17/2019 Office Visit [facility] Amelia Casey MD Essential hypertension (Primary Dx); Cardiology- [address] Obesity (BMI 30-39.9) [facility] [address] [place] [phone] Allergies Active Allergy Reactions Severity Noted Date [...] file Gets together: Not on file Attends yarsani service: Not on file Active member of [...] months Amelia Casey MD, FACC, FACP, ЕКАТЕРИНА Revenue Cycle Analyst, Division of Cardiology [facility] documented in this encounter Plan of Treatment Date Type Specialty Care Team Description 02/14/2019 Office Visit Cardiology Amelia Casey MD [address] [facility] [address] [place] [address] Health Maintenance Due Date Last [...] 30-39.9) Obesity, unspecified documented in this encounter (Work) [address] documented as of this encounter
[2019-02-05 14:44] LABS: ALT/SGPT 35 U/L (12-78); AST/SGOT 18 U/L (15-37); Albumin 3.9 g/dL (3.4-5.0); Alkaline Phosphatase 84 U/L (45-117); BUN Blood Urea Nitrogen 11 mg/dL (7-18); Bicarbonate 23 mmol/L (21-32); Bilirubin Direct 0.2 mg/dL (0-0.2); Bilirubin Total 0.9 mg/dL (0.2-1.0); Glucose Level 153 mg/dL (74-106); Lipase 165 U/L (73-393); Potassium 3.5 mmol/L (3.5-5.1); Sodium Level 143 mmol/L (136-145)
[2019-02-05 14:50] LABS: Absolute Lymphocytes (CBC) 0.5 K/uL (0.7-4.9); Basophils % 0.1 % (0-1.3); Hematocrit 37.9 % (39.6-49.0); Lymphocytes % 4.5 % (15.3-44.8); RBC Red Blood Cell Count 4.29 M/uL (4.33-5.43)
[2019-02-05 15:20] LABS: Urine Blood 2+ (NEG); Urine Glucose NEGATIVE (NEG); Urine Protein 2+ (NEG); Urine Specific Gravity >1.030 (1.005-1.030)
[2019-02-05 15:25] LABS: Urine Bacteria 20-50 /HPF (NONE SEEN); Urine Culture Reflex Order NOT NEEDED
--- NOTE | 2019-02-05 16:13 | RAD REPORT ---
EXAM DESCRIPTION: CT - Abdomen Pelvis W Contrast - 02/05/2019 3:29 pm CLINICAL HISTORY: lower abdominal paindysuria COMPARISON: CT study November 1014 TECHNIQUE: Biphasic, helical CT imaging of the abdomen and pelvis was performed following 100 ml non -ionic IV contrast. No oral contrast. All CT scans are performed using dose optimization technique as appropriate and may include automated exposure control or mA/KV adjustment according to patient size. FINDINGS: No suspicious findings in the lung bases. The liver, spleen, and pancreas show no suspicious findings. Liver is borderline fatty infiltrated. N o gallbladder or biliary tree acute finding. Renal function is symmetric without evidence for delayed function. No pyelonephritis or acute parench ymal process. Bladder is contracted. Bowel thickening is present with edema. Prostate gland is promin ent. No adrenal abnormalities. No gastric dilatation or gastric wall thickening. No small bowel dilatation. Moderate stool volume se en throughout the colon. Prominent sigmoid diverticulosis present without diverticulitis. No free ai r, free fluid or inflammatory stranding. No mass or bulky lymphadenopathy. Large bilateral fat fille d hernias are. Small fat only umbilical hernia present. No suspicious bony findings. IMPRESSION: Suspected cystitis. Correlation is needed with clinical presentation. Prostatitis is pos sible as well. No hydronephrosis or obstructing calculus. No pyelonephritis. No acute GI finding.
[2019-02-05] MEDS ORDERED: CIPROFLOXACIN HCL 500 MG TAB ONE (16:42)
--- NOTE | 2019-02-05 17:17 | ER ---
Nurse's Notes [facility] Name: Juliocesar Martinez Age: 59 yrs Sex: Male : 1960 Arrival Date: 02/05/2019 Time: 13:23 Bed 19 Private MD: Diagnosis: Acute prostatitis;Urinary tract infection, site not specified Presentation: 02/05 13:26 Presenting complaint: Patient states: painful urination. Pt also reports last normal aa5 void was today at 0500 and states "I just been peeing drops all day today". Transition of care: patient was not received from another setting of care. Onset of symptoms was February 05, 2019. Risk Assessment: Do you want to hurt yourself or someone else? Patient reports no desire to harm self or others. Initial Sepsis Screen: Does the patient meet any 2 criteria? No. Patient's initial sepsis screen is negative. Does the patient have a suspected source of infection? No. Patient's initial sepsis screen is negative. Care prior to arrival: None. 13:26 Method Of Arrival: Wheelchair aa5 13:26 Acuity: CLARIBEL 3 aa5 Triage Assessment: 13:35 General: Appears in no apparent distress. comfortable, Behavior is calm, cooperative, bp appropriate for age. Pain: Complains of pain in pelvis. EENT: No deficits noted. Neuro: No deficits noted. Cardiovascular: No deficits noted. Respiratory: No deficits noted. GI: No signs and/or symptoms were reported involving the gastrointestinal system. : Reports burning with urination, urinary frequency. Derm: No deficits noted. Musculoskeletal: No deficits noted. Historical: - Allergies: 13:28 PENICILLINS; aa5 - PMHx: 13:28 Diabetes - IDDM; High Cholesterol; Hypertension; aa5 - PSHx: 13:28 left shoulder; aa5 - Immunization history:: Adult Immunizations unknown. - Social history:: Smoking status: Patient/guardian denies using tobacco. - Ebola Screening: : No symptoms or risks identified at this time. Screenin:36 Abuse screen: Denies threats or abuse. Denies injuries from another. Nutritional bp screening: No deficits noted. Tuberculosis screening: No symptoms or risk factors identified. Fall Risk None identified. Assessment: 13:35 General: SEE TRIAGE NOTE. bp 15:44 Reassessment: PT RETURNED FROM CT. ALL CURRENT ORDERS COMPLETED. bp 17:21 Reassessment: PT D/C HOME AMBULATORY, DX WITH PROSTATITIS. bp Vital Signs: 13:28 BP 141 / 76; Pulse 95; Resp 18 S; Temp 99.8(O); Pulse Ox 96% on R/A; Weight 83.91 kg aa5 (R); Height 5 ft. 4 in. (162.56 cm) (R); Pain 10/10; 14:15 BP 120 / 77; Pulse 87; Resp 16; Temp 100.9(O); Pulse Ox 99% on R/A; mh5 15:19 BP 135 / 78; Pulse 89; Resp 17; Pulse Ox 95% on R/A; mh5 17:22 BP 140 / 79; Pulse 91; Resp 16; Temp 99; Pulse Ox 99% ; bp 13:28 Body Mass Index 31.75 (83.91 kg, 162.56 cm) 5 ED Course: 13:23 Patient arrived in ED. mr 13:26 Arm band placed on. [facility] 13:28 Triage completed. [facility] 13:30 Pablo Avalos, SHAKA is Primary Nurse. bp 13:30 Boby Jose PA is PHCP. [facility] 13:30 David Palafox MD is Attending Physician. [facility] 13:36 Patient has correct armband on for positive identification. Bed in low position. Call bp light in reach. Side rails up X2. 13:45 Urine Culture Sent. 5 13:45 Urine Microscopic Only Sent. [facility] 13:45 Urine collected: clean catch specimen, cloudy. [facility] 14:10 Inserted saline lock: 20 gauge in right antecubital area, using aseptic technique. bp Blood collected. 15:30 CT Abd/Pelvis - IV Contrast Only In Process Unspecified. EDMS 17:09 Ganesh Linares MD is Referral Physician. [facility] 17:23 No provider procedures requiring assistance completed. IV discontinued, intact, bp bleeding controlled, No redness/swelling at site. Pressure dressing applied. Administered Medications: 16:48 Drug: Cipro 500 mg Route: PO; bp 17:23 Follow up: Response: No adverse reaction bp Outcome: 17:09 Discharge ordered by . jmm 17:22 Discharged to home ambulatory. bp 17:22 Condition: stable 17:22 Discharge instructions given to patient, Instructed on discharge instructions, follow up and referral plans. medication usage, Demonstrated understanding of instructions, follow-up care, medications, Prescriptions given X 1. 17:23 Patient left the ED. bp Addendum: 02/08/2019 07:38 Addendum: Culture Results: Positive urine culture. No further action required. Bacteria s s sensitive to prescribed antibiotic. Signatures: Dispatcher [employer] EDMS Boby Jose PA PA jmm Rivera, Mary mr Noyola, Asya, RN RN aa5 Tamia Pike RN RN ss Martinez, Maria [facility] Pablo Avalos RN RN bp
--- NOTE | 2019-02-05 17:17 | EDPHYS ---
Physician Documentation [facility] Name: Juliocesar Martinez Age: 59 yrs Sex: Male : 1960 Arrival Date: 02/05/2019 Time: 13:23 Bed 19 Private MD: ED Physician Dvaid Palafox HPI: 02/05 13:59 This 59 yrs old Male presents to ER via Wheelchair with complaints of Urinary jmm Problem. 13:59 The patient presents with urinary symptoms, urinary frequency. Onset: The jmm symptoms/episode began/occurred gradually. Modifying factors: the symptoms are aggravated by. This is a 59 year old male with a history of dm that presents to the ED with complaints of lower abdominal pain, painful urination, worsening this morning at 0500. Denies vomiting. . Historical: - Allergies: 13:28 PENICILLINS; aa5 - PMHx: 13:28 Diabetes - IDDM; High Cholesterol; Hypertension; aa5 - PSHx: 13:28 left shoulder; aa5 - Immunization history:: Adult Immunizations unknown. - Social history:: Smoking status: Patient/guardian denies using tobacco. - Ebola Screening: : No symptoms or risks identified at this time. ROS: 13:59 Constitutional: Negative for fever, chills, and weight loss, Cardiovascular: Negative jmm for chest pain, palpitations, and edema, Respiratory: Negative for shortness of breath, cough, wheezing, and pleuritic chest pain. 13:59 Abdomen/GI: Positive for abdominal pain. 13:59 : Positive for urinary symptoms. 13:59 All other systems are negative. Exam: 13:59 Constitutional: This is a well developed, well nourished patient who is awake, alert, jmm and in no acute distress. Head/Face: atraumatic. Eyes: EOMI, no conjunctival erythema appreciated ENT: Moist Mucus Membranes Neck: Trachea midline, Supple Chest/axilla: Normal chest wall appearance and motion. Cardiovascular: Regular rate and rhythm. No edema appreciated Respiratory: Normal respirations, no respiratory distress appreciated Abdomen/GI: Non distended, soft 13:59 Abdomen/GI: Inspection: abdomen appears normal, Bowel sounds: normal, Palpation: soft, mild abdominal tenderness, in the suprapubic area, right lower quadrant and left lower quadrant. 13:59 Musculoskeletal/extremity: ROM: intact in all extremities. 13:59 Skin: Appearance: Color: normal in color. 13:59 Neuro: Orientation: is normal, Mentation: is normal, Memory: is normal. 13:59 Psych: Behavior/mood is pleasant, cooperative. Vital Signs: 13:28 BP 141 / 76; Pulse 95; Resp 18 S; Temp 99.8(O); Pulse Ox 96% on R/A; Weight 83.91 kg aa5 (R); Height 5 ft. 4 in. (162.56 cm) (R); Pain 10/10; 14:15 BP 120 / 77; Pulse 87; Resp 16; Temp 100.9(O); Pulse Ox 99% on R/A; mh5 15:19 BP 135 / 78; Pulse 89; Resp 17; Pulse Ox 95% on R/A; mh5 17:22 BP 140 / 79; Pulse 91; Resp 16; Temp 99; Pulse Ox 99% ; bp 13:28 Body Mass Index 31.75 (83.91 kg, 162.56 cm) aa5 MDM: 13:52 Patient medically screened. [facility] 17:08 Data reviewed: vital signs, nurses notes. Counseling: I had a detailed discussion with corby the patient and/or guardian regarding: the historical points, exam findings, and any diagnostic results supporting the discharge/admit diagnosis, lab results, radiology results, the need for outpatient follow up, to return to the emergency department if symptoms worsen or persist or if there are any questions or concerns that arise at home. ED course: Patient is alert and non toxic in appearance. Patient advised to follow up with urology and otherwise given strict return precautions. patient understood and agrees with the plan of care. . 02/05 13:37 Order name: Urine Microscopic Only; Complete Time: 15:40 bp 02/05 13:37 Order name: Urine Culture 02/05 13:58 Order name: Basic Metabolic Panel; Complete Time: 14:52 [facility] 02/05 13:58 Order name: CBC with Diff [facility] 02/05 13:58 Order name: Creatinine for Radiology; Complete Time: 14:52 [facility] 02/05 13:58 Order name: Hepatic Function; Complete Time: 14:52 [facility] 02/05 13:37 Order name: Urine Dipstick-Ancillary (obtain specimen); Complete Time: 13:37 02/05 13:58 Order name: Lipase; Complete Time: 14:52 [facility] 02/05 13:58 Order name: IV Saline Lock; Complete Time: 14:11 [facility] 02/05 13:58 Order name: Labs collected and sent; Complete Time: 14:11 [facility] 02/05 13:58 Order name: CT Abd/Pelvis - IV Contrast Only; Complete Time: 16:34 [facility] 02/05 14:01 Order name: Urine Dipstick--Ancillary (enter results); Complete Time: 15:40 bd Administered Medications: 16:48 Drug: Cipro 500 mg Route: PO; bp 17:23 Follow up: Response: No adverse reaction bp Disposition: 17:53 Co-signature as Attending Physician, David Palafox MD. rn Disposition: 02/05/19 17:09 Discharged to Home. Impression: Acute prostatitis, Urinary tract infection, site not specified. - Condition is Stable. - Discharge Instructions: Prostatitis, Urinary Tract Infection, Adult. - Prescriptions for Cipro 500 mg Oral Tablet - take 1 tablet by ORAL route every 12 hours for 14 days; 28 tablet. - Medication Reconciliation Form, Thank You Letter, Antibiotic Education, Prescription Opioid Use form. - Follow up: Ganesh Linares MD; When: 2 - 3 days; Reason: Recheck today's complaints, Continuance of care, Re-evaluation by your physician. Signatures: Dispatcher [employer] EDBoby Waters PA PA David Hernandez MD MD rn Calderon, Audri, SHAKA RN aa5 Pablo Avalos RN RN bp Corrections: (The following items were deleted from the chart) 17:23 17:09 02/05/2019 17:09 Discharged to Home. Impression: Acute prostatitis; Urinary tract bp infection, site not specified. Condition is Stable. Forms are Medication Reconciliation Form, Thank You Letter, Antibiotic Education, Prescription Opioid Use. Follow up: Ganesh Linares; When: 2 - 3 days; Reason: Recheck today's complaints, Continuance of care, Re-evaluation by your physician. [facility]
[2019-02-05 18:27] LABS: Blood Morphology Comment NOT SEEN (NOT SEEN); Platelet Estimate ADEQ; Urine White Blood Cell Casts OK
[2019-02-05 19:52] VITALS: BP 140/79; TEMP 99; O2SAT 99
== END 2019-02-05 17:23 | disposition home or self-care (01) ==
LOC: ER 13:19
DX: N41.0 Acute prostatitis (principal); N39.0 Urinary tract infection, site not specified; I10 Essential (primary) hypertension; Z88.0 Allergy status to penicillin
CPT/HCPCS: 87088; 85025; 87086; 80048; 36415; 80076; 83690; 74177; 99284; Q9967; 81003; 81015; 87077; 87186

== ENCOUNTER 2019-05-15 17:19 | Emergency (ER) | payer OTHER ==
--- OUTSIDE RECORDS SUMMARY | 2019-05-15 17:21 | XMS REPORT ---
:1960 [facility] Address [address] [place] [address] [address] [place] [address] Care Team Providers Name Role Phone DR REBA BARNES Unavailable Unavailable Problems This patient has no known problems. Allergies, Adverse Reactions, Alerts This patient has no known allergies or adverse reactions. Medications This patient has no known medications. Encounters Start End Encounter Admission Attending Care Care Encounter Date/Time Date/Time Type Type Clinicians Facility Department ID 2018-07-04 2018-07-04 Outpatient C JAROD BARNES [facility] [id number] 05:36:00 12:29:00 REBA Results Test Description Test Time Test Comments Text Results Atomic Results Result Comments GLUCOMETER GLUCOSE- LAB USE ONLY 2018-07-04 13:21:00 Test Item Value Reference Range Comments GLUCOMETER (test code=GMG) 243 mg/dL 70-100 Meter ID: [id number]: [id number] DONNIE K[place]INNY GLUCOMETER GLUCOSE- LAB USE [id number] 13:21:00 Test Item Value Reference Range Comments GLUCOMETER (test code=GMG) 275 mg/dL 70-100 Meter ID: [id number]: [id number] JULIANA HIRSCH GLUCOMETER GLUCOSE- LAB USE [id number] 06:40:00 Test Item Value Reference Range Comments GLUCOMETER (test code=GMG) 157 mg/dL 70-100 Meter ID: [id number]: [id number] YUE MATHIAS
--- OUTSIDE RECORDS SUMMARY | 2019-05-15 17:23 | XMS REPORT | Summary of Care ---
:1960 Author Organization [facility] - Health Address [address] [place] [address] Care Team Providers Name Role Phone Paulina Augustin Kimberly Primary Care Provider Encounter Details Date Type Department Care Team Description 02/14/2019 Orders Only [facility] Doctor Unassigned, No [address] [facility] [place] [address] [address] [place] [address] Allergies Active Allergy Reactions Severity Noted Date Comments Penicillins Hives, Itching, Rash 07/24/2015 documented as of this encounter (statuses as of 02/16/2019) Medications Medication Sig Dispensed Refills Start Date End Date Status metFORMIN (GLUCOPHAGE) Take 1,000 mg by 1 05/22/2015 Active 1,000 mg tablet mouth 2 (two) times daily with meals. VICTOZA 3-JOSE 0.6 3 07/16/2015 Active mg/0.1 mL (18 mg/3 mL) injection lovastatin 40 mg tablet Take 40 mg by 0 Active mouth at bedtime. glimepiride 4 mg tablet Take 4 mg by 0 Active mouth 2 (two) times daily. amLODIPine 10 mg Take 1 tablet by 90 tablet 3 01/17/2019 Active tabletIndications: mouth daily. Essential hypertension lisinopril 20 mg Take 1 tablet by 180 tablet 3 01/17/2019 Active tabletIndications: mouth 2 (two) Essential hypertension times daily. documented as of this encounter (statuses as of 02/16/2019) Active Problems Problem Noted Date Right ankle pain 07/24/2015 Hypertension Hyperlipidemia Diabetes mellitus documented as of this encounter (statuses as of 02/16/2019) Social History Tobacco Use Types Packs/Day Years [...] Treatment Date Type Specialty Care Team Description 02/18/2020 Office Visit Cardiology Amelia Casey MD [address] [place] [address] [place] [address] [id number] Health Maintenance Due Date Last Done Comments [...] (#1) 2019 documented as of this encounter Procedures Procedure Name Priority Date/Time Associated Diagnosis Comments AUTHORIZATION TO RELEASE Routine 02/14/2019 12:01 AM [facility] TO [facility] CDT documented in this encounter Results Not on filedocumented in this encounter Insurance Payer Benefit Plan / Subscriber ID Effective Dates Phone Address Type Group [employer] GENERIC [employer] GENERIC [id number] 2018-Present [employer] CIGNA CIGNA II [id number] 2005-Present HMO/PPO/POS [employer] GENER[employer] GENERIC [id number] 2015-Present [employer] documented as of this encounter
--- OUTSIDE RECORDS SUMMARY | 2019-05-15 17:23 | XMS REPORT | Summary of Care ---
:1960 Author Organization [facility] Address [address] [place] [address] Care Team Providers Name Role Phone Paulina Augustin Kimberly Primary Care Provider Reason for Visit Reason Comments Follow-up 1 month Encounter Details Date Type Department Care Team Description 02/14/2019 Office Visit [facility] Amelia Casey MD Essential hypertension (Primary Dx); Cardiology- [address], [address] [place] [id number] [phone] Allergies Active Allergy Reactions Severity Noted Date Comments Penicillins Hives, Itching, Rash 07/24/2015 documented as of this encounter (statuses as of 02/14/2019) Medications Medication Sig Dispensed Refills Start Date [...] as of this encounter (statuses as of 02/14/2019) Active Problems Problem Noted Date Right ankle pain 07/24/2015 Hypertension Hyperlipidemia Diabetes mellitus documented as of this encounter (statuses as of 02/14/2019) Social History Tobacco Use Types Packs/Day Years [...] Sign Reading Time Taken Comments Blood Pressure 113/74 02/14/2019 1:20 PM CDT Pulse 66 02/14/2019 1:20 PM CDT Temperature - - Respiratory Rate - - Oxygen Saturation 98% 02/14/2019 1:20 PM CDT Inhaled Oxygen Concentration - - Weight 80.7 kg (178 lb) 02/14/2019 1:20 PM CDT Height 162.6 cm (5' 4") 02/14/2019 1:20 PM CDT Body Mass Index 30.55 02/14/2019 1:20 PM CDT documented in this encounter Progress Notes Dunia Houston RN - 02/14/2019 1:20 PM [id number] EKG performed at bedside, tolerated well. Tracing given to for review. EKG transmitted to [facility] for interpretation. ai, MD Amelia - 02/14/2019 1:20 PM CDT CARDIOLOGY CLINIC NOTE 02/14/2019 Reason for Referral/Presenting Complaint: HTN PCP: PATIENT [...] Labs done in 08/2018 reviewed. No concerns. He recently had EMG and MRI done. Was told that he has cardiomegaly. Review of Systems: General: (-) fever, (-) [...] 2 (two) times daily. 180 tablet 3 glimepiride 4 mg tablet Take 4 mg by mouth 2 (two) times daily. lovastatin 40 mg tablet Take 40 mg by mouth at bedtime. metFORMIN (GLUCOPHAGE) 1,000 mg tablet Take 1,000 mg by mouth 2 (two) times daily with meals. 1 VICTOZA 3-JOSE 0.6 mg/0.1 mL (18 mg/3 mL) injection 3 No current facility-administered medications for this visit. [...] file Gets together: Not on file Attends moravian service: Not on file Active member of [...] of Onset Diabetes Mother Physical Examination: BP 113/74 (BP Location: Left arm, Patient Position: Sitting, BP CUFF SIZE: Adult Medium) | Pulse 66 | Ht 5' 4" (1.626 m) | Wt 178 lb (80.7 kg) | SpO2 98 % | BMI 30.55 kg/m Constitutional: alert and oriented x 3 [...] testing: EKG: Normal sinus rhythm. Normal EKG. 02/14/2019 ---reviewed by me--Normal sinus rhythm. Normal EKG. ECHO--2018 There is mild concentric left ventricular hypertrophy. Left ventricular systolic function is normal. Diastolic dysfunction. The right ventricle is borderline dilated. The right ventricular systolic function is normal. Right ventricular systolic pressure is normal. The left atrium is borderline dilated. GHADA--Normal Assessment/Plan: ICD-10-CM ICD-9-CM 1. Essential hypertension I10 401.9 2. Cardiomegaly I51.7 429.3 Cardiomegaly--Mild cardiomegaly on ECHO. Discussed the significance. For now no major concern. Focuson BP control. Previously discussed sleep study but he is not interested. HTN--His BP is well controlled now. Continue lisinopril and amlodipine. Obesity/snoring--We requested a sleep study to assess GEOVANNY but apparently he does not want it. Patient was counseled for lifestyle modifications including: diet, exercise and weight loss. RTC 12 months Amelia Casey MD, FACC, FACP, ЕКАТЕРИНА Hr Shared Services Consultant, Division of Cardiology [facility] documented in this encounter Plan of Treatment Date Type Specialty Care Team Description 02/18/2020 Office Visit Cardiology Amelia Casey MD [address] [facility] [address] [place] [address] Name Type Priority Associated Diagnoses Order Schedule EKG-12 LEAD ROUTINE HEART STATION Routine Essential hypertension Ordered: 02/14/2019 Health Maintenance Due Date Last Done Comments [...] Essential hypertension - Primary Unspecified essential hypertension Cardiomegaly documented in this encounter (Work) [id number] documented as of this encounter
--- OUTSIDE RECORDS SUMMARY | 2019-05-15 17:23 | XMS REPORT | Summary of Care ---
:1960 Author Organization [facility] Address [address] [place] [address] Care Team Providers Name Role Phone Paulina Augustin Kimberly Primary Care Provider Reason for Visit Reason Comments Follow-up 1 month Encounter Details Date Type Department Care Team Description 02/14/2019 Office Visit [facility] Amelia Casey MD Essential hypertension (Primary Dx); Cardiology- [address], [address] [place] [id number] [phone] Allergies Active Allergy Reactions Severity Noted Date [...] Dunia Houston RN - 02/14/2019 1:20 PM [id number] EKG performed at bedside, tolerated well. Tracing given to for review. EKG transmitted to [place] for interpretation. ai, MD Amelia - 02/14/2019 [...] file Gets together: Not on file Attends lutheran service: Not on file Active member of [...] months Amelia Casey MD, FACC, FACP, ЕКАТЕРИНА Intervention Nurse, Division of Cardiology [facility] documented in this encounter Plan of Treatment Date Type Specialty Care Team Description 02/18/2020 Office Visit Cardiology Amelia Casey MD [address] [facility] [address] [place] [address] Name Type Priority Associated Diagnoses [...] hypertension Cardiomegaly documented in this encounter (Work) [id number] documented as of this encounter
--- OUTSIDE RECORDS SUMMARY | 2019-05-15 17:24 | XMS REPORT ---
:1960 Author Organization [employer] Care Team Providers Name Role Phone Augustin, Na Provider Role Unavailable Allergies No Known Allergies Problems Problem Type Condition Code Onset Dates Condition Status Problem Obese E66.9 Active Problem Controlled type 2 diabetes mellitus E11.9 Active without complication, without long-term current use of insulin Problem Benign essential HTN I10 Active Problem Type 2 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 diabetic kidney complication Problem Other obesity due to excess E66.09 Active calories Problem Diverticulosis K57.90 Active Problem Body mass index (BMI) of 31.0-31.9 Z68.31 Active in adult Problem 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
--- OUTSIDE RECORDS SUMMARY | 2019-05-15 17:24 | XMS REPORT ---
:1960 Author Organization [employer] Care Team Providers Name Role Phone Augustin, Na Provider Role Unavailable Allergies, Adverse Reactions, Alerts Substance Reaction Event Type PCN Info Not Available Drug Allergy Amoxicillin Info Not Available Drug Allergy Problems Problem Type Condition Code Onset Dates Condition Status Assessment Diabetic retinopathy screening Z13.5 Active Assessment Encounter for screening colonoscopy Z12.11 Active Assessment Body mass index (BMI) of 31.0-31.9 Z68.31 Active in adult Assessment Needs flu shot Z23 Active Problem Diabetes E11.9 Active Assessment Other obesity due to excess E66.09 Active calories Problem Controlled type 2 diabetes mellitus E11.9 Active without complication, without long-term current use of insulin Assessment Allergic conjunctivitis of both H10.13 Active eyes Problem 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 Problem Other chronic pain G89.29 Active Problem Body mass index (BMI) of 31.0-31.9 Z68.31 Active in adult Problem Proteinuria, unspecified R80.9 Active Problem Encounter for general adult medical Z00.01 Active examination with abnormal findings Assessment Mixed hyperlipidemia E78.2 Active Assessment Benign essential HTN I10 Active Problem Diverticulosis K57.90 Active Assessment Proteinuria, unspecified R80.9 Active Problem Other obesity due to excess E66.09 Active calories Problem Pain in right ankle and joints of M25.571 Active right foot Problem Allergic conjunctivitis of both H10.13 Active eyes Problem Type 2 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 diabetic kidney complication Assessment Encounter for general adult medical Z00.01 Active examination with abnormal findings Assessment Type 2 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 diabetic kidney complication Assessment Controlled type 2 diabetes mellitus E11.9 Active without complication, without long-term current use of insulin Problem Obese E66.9 Active Problem Benign essential HTN I10 Active Problem Mixed hyperlipidemia E78.2 Active Problem Diabetic nephropathy E11.21 Active Medications Medication Code Code Instructions Start End Status Dosage System Date Date Metformin HCl [facility] 31060230353 1000 MG Orally Active 1 tablet Twice a day with meals Duexis [facility] 54188268160 800-26.6 MG Active 1 tablet Orally Three times a day Glimepiride [facility] 07849477184 4 MG Active TAKE 1 TABLET BY MOUTH TWICE A DAY Glimepiride [facility] 90169826122 2 MG Orally Feb 21, Active 1 tablet twice a day 2018 with breakfast or the first main meal of the day Victoza [facility] 72660386702 18 MG/3ML Active 1.8 mg Subcutaneous once a day Aspirin Adult [facility] 80470506942 81 MG Orally Active 1 tablet Low Dose Once a day Lovastatin [facility] 72793533410 40 MG Orally Active 1 tablet Once a day with a meal Lisinopril [facility] 81976410351 20 MG Orally Active 1 tablet Once a day Amlodipine [facility] 39459770312 10 MG Orally Active 1 tablet Besylate Once a day Gabapentin [facility] 54390815137 300 MG Orally Active 1 capsule Once a day before bedtime Farxiga [facility] 58121338641 10mg By Mouth Active 1 Daily Metformin HCl [facility] 77315412086 1000 MG Orally Active 1 tablet Twice a day with meals Gabapentin [facility] 96787660741 300 MG Orally Active 1 capsule Once a day before bedtime Results No Known Results Immunizations Vaccine Administration Date Afluria single dose Apr 24, 2019 Summary Purpose [employer]ClinicalWorks Submission
--- OUTSIDE RECORDS SUMMARY | 2019-05-15 17:24 | XMS REPORT ---
:1960 Author Organization [employer] Care Team Providers Name Role Phone Augustin, Na Provider Role Unavailable Allergies No Known Allergies Problems Problem Type Condition Code Onset Dates Condition Status Problem Obese E66.9 Active Problem Controlled type 2 diabetes mellitus E11.9 Active without complication, without long-term current use of insulin Problem Benign essential HTN I10 Active Problem Diabetes E11.9 Active Problem Mixed hyperlipidemia E78.2 Active Problem Diabetic nephropathy E11.21 Active Problem Type 2 diabetes mellitus with [...] foot Problem Other chronic pain G89.29 Active Medications No Known Medications Results No Known Results Summary Purpose [employer]Works Submission
[2019-05-15] MEDS ORDERED: ACETAMINOPHEN 500 MG TAB ONE (18:17)
[2019-05-15] MEDS ORDERED: FENTANYL CITR 100 MCG/2 ML ONE (18:17)
[2019-05-15 18:20] LABS: Absolute Lymphocytes (CBC) 1.2 K/uL (0.7-4.9); Basophils % 0.7 % (0-1.3); Lymphocytes % 18.1 % (15.3-44.8); MPV 8.7 fL (7.6-11.3); RBC Red Blood Cell Count 4.51 M/uL (4.33-5.43)
[2019-05-15 18:36] LABS: Protime INR 0.91
[2019-05-15 18:38] LABS: Bilirubin Direct 0.1 mg/dL (0-0.2); Bilirubin Total 0.3 mg/dL (0.2-1.0); Potassium 3.9 mmol/L (3.5-5.1); Protein, Total 7.3 g/dL (6.4-8.2)
--- NOTE | 2019-05-15 19:12 | RAD REPORT ---
EXAM DESCRIPTION: US - Extremity Venous Uni Ltd - 05/15/2019 6:33 pm CLINICAL HISTORY: Left leg pain and swelling COMPARISON: None. TECHNIQUE: Real-time sonographic evaluation of the left lower extremity deep venous system was perfo rmed. FINDINGS: Normal compressibility, flow augmentation, phasic flow and spontaneous flow are identified in the left lower extremity common femoral, superficial femoral, popliteal and posterior tibial vein s. No intraluminal filling defects seen. IMPRESSION: No DVT in the left lower extremity.
--- NOTE | 2019-05-15 19:13 | RAD REPORT ---
EXAM DESCRIPTION: RAD - Knee Left 3 View - 05/15/2019 6:33 pm CLINICAL HISTORY: Persistent left knee pain COMPARISON: None. FINDINGS: No fracture, dislocation or periosteal reaction.No measurable joint effusion. No joint spa ce narrowing seen. Patient does have medial and lateral compartments small marginal spurs. Small spur s are seen along the articular margins of patella as well. Subcutaneous fatty tissues appear edematou s. No air or foreign body in the soft tissues. IMPRESSION: Left knee degenerative change as detailed. No acute bone or joint finding. Edema changes are evident in the subcutaneous fatty tissues of the knee and lower leg. No air or fore ign body. Clinical concerns for internal derangement or occult bony injury could be further assessed with MR im aging.
--- NOTE | 2019-05-15 20:12 | ER ---
Nurse's Notes [facility] Name: Juliocesar Martinez Age: 59 yrs Sex: Male : 1960 Arrival Date: 05/15/2019 Time: 17:22 Bed 18 Private MD: Paulina Augustin Diagnosis: Left Lower Extremity pain;Left Lower Extremity Swelling Presentation: 05/15 17:37 Presenting complaint: Patient states: my leg hurts. I have problem with my legs for rv months now. sometimes it does not hurt, but when I work, the pain progresses thru the day. the pain starts in the knee all the way down. Transition of care: patient was not received from another setting of care. Onset of symptoms was May 15, 2019 at 15:00. Risk Assessment: Do you want to hurt yourself or someone else? Patient reports no desire to harm self or others. Initial Sepsis Screen: Does the patient meet any 2 criteria? No. Patient's initial sepsis screen is negative. Does the patient have a suspected source of infection? No. Patient's initial sepsis screen is negative. Care prior to arrival: None. 17:37 Method Of Arrival: Ambulatory rv 17:37 Acuity: CLARIBEL 4 rv Historical: - Allergies: 17:40 PENICILLINS; rv - PMHx: 17:40 Diabetes - IDDM; High Cholesterol; Hypertension; rv - PSHx: 17:40 None; rv - Immunization history:: Adult Immunizations up to date, Flu vaccine is up to date. - Social history:: Smoking status: Patient/guardian denies using tobacco. - Ebola Screening: : No symptoms or risks identified at this time. - Family history:: not pertinent. - Hospitalizations: : No recent hospitalization is reported. Screenin:41 Abuse screen: Denies threats or abuse. Denies injuries from another. Nutritional rv screening: No deficits noted. Tuberculosis screening: No symptoms or risk factors identified. Fall Risk None identified. Assessment: 17:40 General: Appears in no apparent distress. comfortable, Behavior is calm, cooperative. rv Pain: Complains of pain in right leg and left leg. Neuro: Level of Consciousness is awake, alert, obeys commands, Oriented to person, place, time, situation. Cardiovascular: Patient's skin is warm and dry. Respiratory: Airway is patent. GI: No signs and/or symptoms were reported involving the gastrointestinal system. : No signs and/or symptoms were reported regarding the genitourinary system. EENT: No signs and/or symptoms were reported regarding the EENT system. Derm: Skin is intact. Musculoskeletal: Swelling present in right leg and left leg Reports pain in right leg and left leg. 20:44 Reassessment: Patient appears in no apparent distress at this time. Patient and/or rv family updated on plan of care and expected duration. Pain level reassessed. Patient is alert, oriented x 3, equal unlabored respirations, skin warm/dry/pink. Dr Tyler talked to the patient and family and explained the results and plan of care. discharged. Vital Signs: 17:38 BP 152 / 83; Pulse 78; Resp 18; Temp 98; Pulse Ox 99% ; Weight 83.91 kg; Height 4 ft. 5 rv in. (134.62 cm); Pain 7/10; 18:00 BP 116 / 64; Pulse 69; Resp 17; Pulse Ox 97% on R/A; rv 18:30 BP 118 / 75; Pulse 66; Resp 15; Pulse Ox 97% on R/A; rv 18:45 BP 120 / 71; Pulse 66; Resp 16; Pulse Ox 96% on R/A; rv 19:30 BP 121 / 67; Pulse 63; Resp 17; Pulse Ox 96% on R/A; rv 20:30 BP 119 / 67; Pulse 95; Resp 16; Pulse Ox 97% on R/A; rv 17:38 Body Mass Index 46.30 (83.91 kg, 134.62 cm) rv ED Course: 17:22 Patient arrived in ED. as 17:22 Paulina Augustin MD is Private Physician. as 17:23 Olive Naranjo, RN is Primary Nurse. iw 17:26 Hira Tyler MD is Attending Physician. wa 17:37 Sandro Arias, SHAKA is Primary Nurse. rv 17:38 Triage completed. rv 17:41 Patient has correct armband on for positive identification. Bed in low position. Call rv light in reach. Side rails up X 1. Pulse ox on. NIBP on. 17:41 Patient placed in the treatment room, on a stretcher, on pulse oximetry, Patient rv notified of wait time. 18:12 Inserted saline lock: 20 gauge in right antecubital area, using aseptic technique. rv Blood collected. 20:44 No provider procedures requiring assistance completed. IV discontinued, intact, rv bleeding controlled, No redness/swelling at site. Pressure dressing applied. Administered Medications: 18:18 Drug: Tylenol 1000 mg Route: PO; rv 20:47 Follow up: Response: No adverse reaction rv 18:19 Drug: fentaNYL (PF) 25 mcg {Note: rass 0.} Route: IVP; Site: right antecubital; rv 20:47 Follow up: Response: No adverse reaction; Marked relief of symptoms; Pain is decreased; rv RASS: Alert and Calm (0) Outcome: 20:11 Discharge ordered by . az 20:45 Discharged to home ambulatory, with family. rv 20:45 Condition: good 20:45 Discharge instructions given to patient, family, Instructed on discharge instructions, follow up and referral plans. medication usage, Demonstrated understanding of instructions, follow-up care, medications, Prescriptions given X 1. 20:45 Patient left the ED. rv Signatures: Ellen Montgomery Irene, SHAKA MATT Hira Tyler MD MD wa Vicente, Ronaldo, RN RN rv
--- NOTE | 2019-05-15 20:13 | EDPHYS ---
Physician Documentation [facility] Name: Juliocesar Martinez Age: 59 yrs Sex: Male : 1960 Arrival Date: 05/15/2019 Time: 17:22 Bed 18 Private MD: Paulina Augustin ED Physician Hira Tyler HPI: 05/15 18:53 This 59 yrs old Male presents to ER via Ambulatory with complaints of Foot wa Pain, Leg Pain. 18:53 This 59 yrs old Male presents to ER via Ambulatory with complaints of Foot wa Pain, Leg Pain. 18:53 The patient presents with pain, that is acute, swelling. The complaints affect the left wa hamstring, left calf, medial aspect of left thigh and left kang. Context: Problem is a result from a previous injury: Yes. states got hurt at work a year ago. hurt his left side. got L shoulder surgery but intermittently has lower extremity pain. this time c/o L lower leg pain and swelling. denies acute injury. pain located in calf and medial thigh. denies CP or SOB. Onset: The symptoms/episode began/occurred 2 day(s) ago. Modifying factors: The symptoms are alleviated by nothing. the symptoms are aggravated by weight bearing. Associated signs and symptoms: Pertinent positives: calf tenderness, swelling, Pertinent negatives fever, tingling, vomiting, warmth, weakness. Treatment prior to arrival includes: no previous treatment. Severity of symptoms: At their worst the symptoms were moderate, in the emergency department the symptoms are unchanged. The patient has experienced similar episodes in the past, a few times. The patient has not recently seen a physician. Historical: - Allergies: 17:40 PENICILLINS; rv - PMHx: 17:40 Diabetes - IDDM; High Cholesterol; Hypertension; rv - PSHx: 17:40 None; rv - Immunization history:: Adult Immunizations up to date, Flu vaccine is up to date. - Social history:: Smoking status: Patient/guardian denies using tobacco. - Ebola Screening: : No symptoms or risks identified at this time. - Family history:: not pertinent. - Hospitalizations: : No recent hospitalization is reported. ROS: 19:03 Constitutional: Negative for fever, chills, and weight loss, Eyes: Negative for injury, wa pain, redness, and discharge, ENT: Negative for injury, pain, and discharge, Neck: Negative for injury, pain, and swelling, Cardiovascular: Negative for chest pain, palpitations, and edema, Respiratory: Negative for shortness of breath, cough, wheezing, and pleuritic chest pain, Abdomen/GI: Negative for abdominal pain, nausea, vomiting, diarrhea, and constipation, Back: Negative for injury and pain, : Negative for injury, bleeding, discharge, and swelling, Skin: Negative for injury, rash, and discoloration, Neuro: Negative for headache, weakness, numbness, tingling, and seizure, Psych: Negative for depression, anxiety, suicide ideation, homicidal ideation, and hallucinations. 19:03 MS/extremity: Positive for pain, swelling, tenderness, of the left calf. 19:03 All other systems are negative. Exam: 19:09 Constitutional: This is a well developed, well nourished patient who is awake, alert, wa and in no acute distress. Head/Face: Normocephalic, atraumatic. Eyes: Pupils equal round and reactive to light, extra-ocular motions intact. Lids and lashes normal. Conjunctiva and sclera are non-icteric and not injected. Cornea within normal limits. Periorbital areas with no swelling, redness, or edema. ENT: Nares patent. No nasal discharge, no septal abnormalities noted. Tympanic membranes are normal and external auditory canals are clear. Oropharynx with no redness, swelling, or masses, exudates, or evidence of obstruction, uvula midline. Mucous membranes moist. Neck: Trachea midline, no thyromegaly or masses palpated, and no cervical lymphadenopathy. Supple, full range of motion without nuchal rigidity, or vertebral point tenderness. No Meningismus. Chest/axilla: Normal chest wall appearance and motion. Nontender with no deformity. No lesions are appreciated. Cardiovascular: Regular rate and rhythm with a normal S1 and S2. No gallops, murmurs, or rubs. Normal PMI, no JVD. No pulse deficits. Respiratory: Lungs have equal breath sounds bilaterally, clear to auscultation and percussion. No rales, rhonchi or wheezes noted. No increased work of breathing, no retractions or nasal flaring. Abdomen/GI: Soft, non-tender, with normal bowel sounds. No distension or tympany. No guarding or rebound. No evidence of tenderness throughout. Back: No spinal tenderness. No costovertebral tenderness. Full range of motion. Skin: Warm, dry with normal turgor. Normal color with no rashes, no lesions, and no evidence of cellulitis. Neuro: Awake and alert, GCS 15, oriented to person, place, time, and situation. Cranial nerves II-XII grossly intact. Motor strength 5/5 in all extremities. Sensory grossly intact. Cerebellar exam normal. Normal gait. Psych: Awake, alert, with orientation to person, place and time. Behavior, mood, and affect are within normal limits. 19:09 Musculoskeletal/extremity: Extremities: grossly normal except: noted in the left calf: pain, swelling, tenderness. Vital Signs: 17:38 BP 152 / 83; Pulse 78; Resp 18; Temp 98; Pulse Ox 99% ; Weight 83.91 kg; Height 4 ft. 5 rv in. (134.62 cm); Pain 7/10; 18:00 BP 116 / 64; Pulse 69; Resp 17; Pulse Ox 97% on R/A; rv 18:30 BP 118 / 75; Pulse 66; Resp 15; Pulse Ox 97% on R/A; rv 18:45 BP 120 / 71; Pulse 66; Resp 16; Pulse Ox 96% on R/A; rv 19:30 BP 121 / 67; Pulse 63; Resp 17; Pulse Ox 96% on R/A; rv 20:30 BP 119 / 67; Pulse 95; Resp 16; Pulse Ox 97% on R/A; rv 17:38 Body Mass Index 46.30 (83.91 kg, 134.62 cm) rv MDM: 17:26 Patient medically screened. hi 19:10 Differential diagnosis: will r/o DVT. check L knee x-ray. pain control. reassess. Data hi reviewed: vital signs, nurses notes. Test interpretation: by ED physician or midlevel provider: labs noted wnl. . 20:08 Test interpretation: by ED physician or midlevel provider: L knee x-ray: no acute fx. wa mild effusion. LLE venous US: no DVT. Response to treatment: the patient's symptoms have markedly improved after treatment. 20:09 ED course: will have wear compression stockings. Elevation of legs PRN. close f/u with hi PMD. 05/15 18: Order name: Basic Metabolic Panel hi 05/15 18:01 Order name: CBC with Diff hi 05/15 18:01 Order name: LFT's hi 05/15 18:01 Order name: PT-INR 05/15 18:01 Order name: D-Dimer 05/15 18:26 Order name: CBC with Automated Diff; Complete Time: 18:52 EDMS 05/15 17:59 Order name: Knee Left 3 View XRAY hi 05/15 18:00 Order name: Extremity Venous Uni Ltd US hi 05/15 18:37 Order name: Protime (+INR); Complete Time: 18:52 EDMS 05/15 18:37 Order name: D-Dimer; Complete Time: 18:52 EDMS 05/15 18:39 Order name: Basic Metabolic Panel; Complete Time: 18:52 EDMS 05/15 18:39 Order name: Liver (Hepatic) Function; Complete Time: 18:52 EDMS 05/15 19:19 Order name: US; Complete Time: 19:56 EDMS 05/15 19:19 Order name: RAD; Complete Time: 19:54 EDMS 05/15 18:01 Order name: IV Saline Lock; Complete Time: 18:12 hi 05/15 18:01 Order name: Labs collected and sent; Complete Time: 18:12 hi Administered Medications: 18:18 Drug: Tylenol 1000 mg Route: PO; rv 20:47 Follow up: Response: No adverse reaction rv 18:19 Drug: fentaNYL (PF) 25 mcg {Note: rass 0.} Route: IVP; Site: right antecubital; rv 20:47 Follow up: Response: No adverse reaction; Marked relief of symptoms; Pain is decreased; rv RASS: Alert and Calm (0) Disposition: 05/15/19 20:11 Discharged to Home. Impression: Left Lower Extremity pain, Left Lower Extremity Swelling. - Condition is Stable. - Discharge Instructions: Peripheral Edema. - Prescriptions for Ibuprofen 600 mg Oral Tablet - take 1 tablet by ORAL route every 8 hours As needed take with food; 20 tablet. - Medication Reconciliation Form, Thank You Letter, Antibiotic Education, Prescription Opioid Use form. - Follow up: Private Physician; When: 1 - 2 days; Reason: Recheck today's complaints. - Problem is new. - Symptoms have improved. - Notes: elevate your legs when at home. wear compression stockings for swelling. follow up with your doctor for further evaluation. return to ER for rapidly worsening symptoms Signatures: Dispatcher [employer] EDMS Hira Tyler MD MD wa Vicente, Ronaldo RN RN rv Corrections: (The following items were deleted from the chart) 20:45 20:11 05/15/2019 20:11 Discharged to Home. Impression: Left Lower Extremity pain; Left rv Lower Extremity Swelling. Condition is Stable. Forms are Medication Reconciliation Form, Thank You Letter, Antibiotic Education, Prescription Opioid Use. Follow up: Private Physician; When: 1 - 2 days; Reason: Recheck today's complaints. Problem is new. Symptoms have improved. cruzito
[2019-05-15 21:07] VITALS: TEMP 98
[2019-05-15 21:11] VITALS: BP 120/71; O2SAT 96
== END 2019-05-15 20:45 | disposition home or self-care (01) ==
LOC: ER 17:19
DX: R60.0 Localized edema (principal); I10 Essential (primary) hypertension; Z88.0 Allergy status to penicillin
CPT/HCPCS: 85025; 80048; 36415; 85610; 85379; 80076; 73562; 93971; 96374; 99284; J3010

== ENCOUNTER 2025-03-04 08:13 | Day surgery (SDC) | payer OTHER ==
[2025-02-26 11:35] LABS: Absolute Lymphocytes (CBC) 0.9 K/uL (0.7-4.9); Hematocrit 37.7 % (39.6-49.0); Hemoglobin 13.0 g/dL (13.6-17.9); MCH 29.8 pg (27.0-35.0); MCHC 34.5 g/dL (32.0-36.0); MCV 86.4 fL (80-100); MPV 8.7 fL (7.6-11.3); Nucleated RBC Absolute Count 0.0 (0-0); Nucleated Red Blood Cells % 0.0 % (0-0); RBC Red Blood Cell Count 4.37 M/uL (4.33-5.43); White Blood Count 5.10 thou/uL (4.3-10.9)
[2025-02-26 11:45] LABS: Anion Gap 10.0 mEq/L (5.0-15.0); BUN Blood Urea Nitrogen 24.0 mg/dL (7-18); Glucose Level 246.0 mg/dL (74-106); Potassium 4.0 mEq/L (3.5-5.1)
--- NOTE | 2025-02-26 11:56 | RAD REPORT ---
Procedure: Chest Pa And Lat (2 Views) HISTORY: Preop for hernia repair COMPARISON: 2018 FINDINGS: The lungs appear clear of acute infiltrate. No significant pleural effusion noted. The heart is mildly to moderately enlarged. IMPRESSION: No acute abnormality is displayed.
[2025-03-04] MEDS: NA CHLORIDE 0.9% 1,000 ML ONE ×2 (08:45→10:30)
[2025-03-04] MEDS ORDERED: ONDANSETRON 4 MG/2 ML VIAL ONE (08:48)
[2025-03-04] MEDS ORDERED: ROCURONIUM 50 MG/5 ML VIAL IV ONE ×2 (08:48→10:32)
[2025-03-04] MEDS ORDERED: KETOROLAC 30 MG/ML INJ ONE (08:48)
[2025-03-04] MEDS ORDERED: LIDOCAINE 2% MPF 5 ML VIAL ONE (08:48)
[2025-03-04] MEDS ORDERED: MIDAZOLAM HCL 2 MG/2 ML INJ ONE (08:51)
[2025-03-04] MEDS ORDERED: FENTANYL CITR 100 MCG/2 ML ONE (08:51)
[2025-03-04] MEDS ORDERED: CIPROFLOXACIN 400mg IV 400 MG/200 ML BAG IV ONE (08:59)
--- NOTE | 2025-03-04 11:18 | P.BOP ---
Preoperative diagnosis: tender bilateral inguinal hernias and umbilical hernia Postoperative diagnosis: same Primary procedure: 1. Laparoscopic repair incarcerated Right inguinal hernia with mesh Secondary procedure: 2. Laparoscopic repair incarcerated left inguinal hernia with mesh Other procedure(s): 3. Open repair incarcerated ventral supraumbilical hernia 2cm Estimated blood loss: <10cc Specimen: sac Findings: as above bilateral direct and Anesthesia: General Complications: None Implants: bilateral 3D mesh with absorbable tack Transferred to: Recovery Room Condition: Good
[2025-03-04] MEDS: HYDROMORPHONE HCL 0.5 MG/0.5 ML INJ ONE (11:43)
[2025-03-04 11:50] VITALS: O2SAT 94
[2025-03-04 12:16] VITALS: BP 106/58; TEMP 97.5
[2025-03-04] MEDS ORDERED: HYDROCODONE/APAP 10/325 TAB ONE (12:48)
[2025-03-04] MEDS: HYDROCODONE/APAP 10/325 TAB PO ONE (12:50)
[2025-03-04] MEDS: TAMSULOSIN 0.4 MG SR CAP ONE (12:50)
--- NOTE | 2025-03-05 19:39 | OP ---
Surgeon: Phillip Montgomery MD Preoperative Diagnoses: Tender bilateral inguinal hernias and umbilical hernia. Postoperative Diagnoses: Tender bilateral inguinal hernias and umbilical hernia. Procedures: 1. Laparoscopic repair of incarcerated right inguinal hernia with mesh. 2. Laparoscopic repair of incarcerated left inguinal hernia with mesh. 3. Open repair of incarcerated ventral supraumbilical hernia of 2 cm. Estimated Blood Loss: Less than 10 cc. Specimens: Hernia sac and ventral region. Findings: The patient has 3 hernias. He wants two of them repaired at the same time, and each herni a in the inguinal region has a direct and indirect component. Implant: Bilateral 3D mesh with absorbable tack on the inguinal region. Complications: None. Indications: This is a case of a 65-year-old patient who comes with 3 hernias. He wants three of th em repaired at the same time. Three of them are giving him pain and discomfort. The benefits, alter natives, and risks of laparoscopic versus open repair of right inguinal hernia, left inguinal hernia, and ventral supraumbilical hernia with possible mesh fully explained to the patient, which include, but not limited to infection, bleeding, damage to adjacent structures, anesthesia complication, chron ic pain, chronic numbness, PA, and even . He also understands this may not relieve any symptoms , he might need more than one surgical intervention. He also understands we may be using mesh in ashish t region, so pros and cons of mesh use were discussed with the patient. All of his questions were an swered to his satisfaction. He signed the consent. Description Of Procedure: The patient was brought to the operating room and placed in supine positio n. Anesthesia was induced without complication. Abdominal area was prepped and draped in a sterile fashion. A time-out was called. At that moment, I proceeded to make an incision in the infraumbilic al region. Incision was carried down to fascia, which was the anterior rectus sheath. Once we opene d the anterior rectus sheath, we pulled the muscle to the side to expose the posterior rectus sheath. The extraperitoneal space was gently developed with the help of blunt dissection, and a balloon tip ped trocar was placed in that area directed to the pubic symphysis. A laparoscope was introduced and then, the balloon was inflated to create the extraperitoneal space. This was done under direct visu alization. After that, the balloon was deflated and removed. We insufflated the area and then put t he camera once again and then, a 5 mm trocar under direct visualization was placed above the pubis sy mphysis and another one mcc between the first and the second one. The preperitoneal space was fu rther developed by exposing the inferior epigastric vessels keeping them anterior. The Jaime's liga ment was dissected laterally to the junction with the iliac veins and dissection continued inferiorly to the iliopubic tract avoiding damage to the femoral branch of the genitofemoral nerve and the late ral femoral cutaneous nerve. We did this in the right side first. The cord structures were carefull y skeletonized and we noticed the patient did have direct and indirect hernias. The hernia sac was g ently mobilized away from the cord structures and reduced back into the peritoneal cavity. After ashish t, then we moved to the left side with the same technique I just described above, just in the opposit e side. Once we have both areas identified with the hernia sac reduced into the peritoneal cavity, I proceeded then to put a 3D mesh. We did the left side first and the mesh was secured in place to co ana direct/indirect spaces. The mesh was secured in place lateral and superior to the iliopubic trac t and inferomedial to the Jaime's ligament with absorbable tackers. Then, we moved to the right lis e and we did the same thing. We put the hernia sac to cover direct/indirect spaces, secured in place and tackers lateral and superior to the iliopubic tract and inferomedial to the Jaime's ligament. After ensuring complete hemostasis, we proceeded then to let the air escape, as we were holding both meshes in place. The trocars were removed. Vicryl #1 was used to close the anterior rectus sheath a nd then, the skin was approximated with a combination of Monocryl. After that, we have to address th is other hernia is in the supraumbilical region. We cannot use the same access that we have in this area due to location, so we created a new incision on the supraumbilical ventral region. Incision wa s carried down until we found the supraumbilical hernia sac was opened. Omentum reduced after fully inspected, removed the hernia sac and then we closed this primarily with the help of #1 Vicryl in a f [id number] fashion multiple times. No mesh needed. The fascia looks strong. At that moment, I proceeded to close the subcutaneous tissue with Monocryl, and the skin was approximated. Sponge coun t and instrument counts were correct. The patient tolerated the procedure well. The patient was sen t to Recovery in stable condition. FIORELLA/REED Voice ID: [id number] Report ID: [id number]
--- NOTE | 2025-03-05 19:43 | DS ---
Date of Discharge: 03/04/2025 Diagnoses: Tender bilateral inguinal hernias and umbilical hernia. Procedures: Laparoscopic repair of right and left inguinal hernia with mesh and open repair of incar cerated ventral supraumbilical hernia 2 cm. Condition: Stable. Disposition: Home. Activity: As tolerated. No heavy lifting. Discharge Instructions: Follow up in my office in 1 week. Call for appointment at [phone]. Keep a daniel dry for 48 hours, then may shower. Cold compress to the bilateral inguinal region for 24 hours. Medications were previously called to his pharmacy. FIORELLA/REED Voice ID: [id number] Report ID: [id number]
== END 2025-03-04 13:40 | disposition home or self-care (01) ==
LOC: OR 08:13
PROVIDERS: ATTEND Surgery
PROC: 0YUA4JZ Supplement Bilateral Inguinal Region with Synthetic Substitute, Percutaneous Endoscopic Approach (ICD-10-PCS; principal; 2025-03-04 09:45)
PROC: 0WQF0ZZ Repair Abdominal Wall, Open Approach (ICD-10-PCS; 2025-03-04 09:45)
DX: K40.00 Bilateral inguinal hernia, with obstruction, without gangrene, not specified as recurrent (principal); K43.0 Incisional hernia with obstruction, without gangrene
CPT/HCPCS: 93005; 85025; 80048; 36415; 82947 ×2; 88302; 71046; 49650; 49592; J1885; J2704; J2003; J2250; J3010; J1100; J1171; J2405; J0744; J7030 ×2; C1781; 88304